=== PATIENT | male | born 1945 | race Caucasian/White ===

== ENCOUNTER 2017-10-22 07:43 | Day surgery (SDC) | payer MEDICARE, BC ==
[~2017-10-22 07:43] MED LIST: BUPIVACAINE HCL 0.75% INJ/PF (7.5 MG/1 ML) 10 ML SDV OD PRN; KETOROLAC TROMETHAMINE 0.45% 4 DROP/0.4 ML DROPERETTE OD PRN; LIDOCAINE 4% INJ/PF (40 MG/ML) 5 ML AMPUL OD PRN; MIDAZOLAM 2 MG/2 ML INJ ONE
[2017-10-22] MEDS: TETRACAINE HCL 0.5% OPH SOLN 0.6 ML DROPERETTE OD PRN ×2 (08:17→08:41)
[2017-10-22] MEDS: CYCLOPENTOLATE 0.2%/PHENYLEPHRINE 1% OPH SOLN 2 ML OD PRN ×3 (08:17→08:38)
[2017-10-22] MEDS: BESIFLOXACIN HCL 0.6% OPH SUSP 5 ML BOTTLE OD PRN ×3 (08:18→09:12)
[2017-10-22] MEDS: TROPICAMIDE 1% OPH SOLN 3 ML OD PRN ×3 (08:18→08:38)
[2017-10-22] MEDS ORDERED: CHONDR SU A NA/HYALUR INTRAOC KIT (SURGICARE) ONE (08:30)
[2017-10-22] MEDS ORDERED: EPINEPHRINE INJ/PF 1 MG/1 ML AMPULE ONE (08:30)
--- NOTE | 2017-10-22 09:47 | [facility] OPERATIVE REPORT E ---
[facility] Operative Report NAME: MEL ACUÑA AGE: 71Y DATE OF SURGERY: 10/22/2017 ROOM: [facility] Operative Report PREOPERATIVE DIAGNOSIS: CATARACT, RIGHT EYE. POSTOPERATIVE DIAGNOSIS: CATARACT, RIGHT EYE. PROCEDURE PERFORMED: PHACOEMULSIFICATION WITH POSTERIOR CHAMBER INTRAOCULAR LENS, RIGHT EYE. SURGEON: NEDRA ULLOA MD ANESTHESIA: TOPICAL WITH MAC. INDICATIONS FOR SURGERY: Difficulty reading computer and glare with driving. Best corrected visual acuity 20/50. PROCEDURE: The patient was brought to the Operating Room and placed on the operative table. Following tetracaine drops, topical anesthesia was administered. This consisted of instrument wipe pledgets soaked in a solution of 4% Xylocaine mixed with 0.75% Marcaine in a 1:2 ratio. A 2 x 1 cm pledget was placed in the superior fornix. A 1 x 1 cm pledget was placed in the inferior fornix. The eye was patched shut for 5 minutes. The patch was removed. The eye was sterilely prepped and draped in the usual manner. Lid speculum was placed in the eye. The pledgets were removed. 4-0 black silk sutures were placed around the superior and the inferior rectus muscles to be used as traction. A conjunctival peritomy was made at the 10 o'clock position. Hemostasis was obtained with bipolar cautery. A posterior limbal groove was created using a crescent knife and dissected anteriorly towards the cornea. A sharp point blade was used to create a paracentesis site at the 2 o'clock position. A 2.4 mm keratome was used to enter the anterior chamber through the groove. Viscoelastic was injected into the anterior chamber. An anterior capsulotomy was performed using Utrata forceps in a capsulorrhexis fashion. Hydrodissection and hydrodelineation were performed. Phacoemulsification was performed in [id number] technique. A total of 6.05 CDE seconds phaco time was used. Following this, the I/A unit was used to remove residual cortex. Viscoelastic was injected into the capsular bag. Intraocular lens model [id number], 17.5 diopters, serial number [id number] was placed in the capsular bag. The I/A unit was used to remove residual viscoelastic. The wound was seen to be watertight under high and low pressure, and no sutures were placed. The intraocular lens was well centered. The pressure was adjusted in the eye to normal pressure. The 4-0 black silk sutures and lid speculum were removed. The eye was shielded after Besivance drops were placed. The patient tolerated the procedure well and was sent to the Recovery Room in good condition. DICTATING PHYSICIAN: NEDRA ULLOA M.D. TISSUE REMOVED OR ALTERED: @ PROCEDURE: @ DICTATING PHYSICIAN: NEDRA ULLOA M.D. [id number] Y#: [id number] ID: [id number] JOB#: [id number] ACCT: [id number] cc:NEDRA ULLOA M.D. >
--- NOTE | 2017-10-22 09:53 | [facility] DISCHARGE SUMMARY E ---
[facility] Discharge Summary NAME: MEL ACUÑA AGE: 71Y ADMITTED: 10/22/2017 DISCHARGED: 10/22/2017 HOSPITAL COURSE: The patient is a 71-year-old gentleman who underwent uneventful cataract extraction with intraocular lens implant right eye on 10/22/2017. He will be discharged to home. He is instructed to resume preoperative medications and take Tylenol as needed for discomfort, to keep his eye shielded, to use Besivance, Durezol, Ilevro 3 p.m. and 8 p.m. Follow up in my office in one day. DICTATING PHYSICIAN: NEDRA ULLOA M.D. [id number] PHY#: [id number] ID: [id number] JOB#: [id number] ACCT: [id number] cc:NEDRA ULLOA M.D. >
== END 2017-10-22 09:50 | disposition home or self-care (01) ==
LOC: SC 07:43
PROVIDERS: ATTEND Ophthalmology
PROC: 08RJ3JZ Replacement of Right Lens with Synthetic Substitute, Percutaneous Approach (ICD-10-PCS; principal; 2017-10-22 09:00)
DX: H25.813 Combined forms of age-related cataract, bilateral (principal); E11.9 Type 2 diabetes mellitus without complications; H34.211 Partial retinal artery occlusion, right eye; H04.123 Dry eye syndrome of bilateral lacrimal glands; M06.9 Rheumatoid arthritis, unspecified; I10 Essential (primary) hypertension; E78.00 Pure hypercholesterolemia, unspecified; I51.9 Heart disease, unspecified; L40.50 Arthropathic psoriasis, unspecified; Z87.891 Personal history of nicotine dependence; Z88.8 Allergy status to other drugs, medicaments and biological substances; Z79.899 Other long term (current) drug therapy; Z79.82 Long term (current) use of aspirin; Z79.84 Long term (current) use of oral hypoglycemic drugs; M10.9 Gout, unspecified
CPT/HCPCS: 66984; 82962; V2632; J2250; J3490 ×3; A9270; J0171

== ENCOUNTER 2017-11-12 08:54 | Day surgery (SDC) | payer MEDICARE, BC ==
[~2017-11-12 08:54] MED LIST changes: -BUPIVACAINE HCL 0.75% INJ/PF (7.5 MG/1 ML) 10 ML SDV OD PRN; +BUPIVACAINE HCL 0.75% INJ/PF (7.5 MG/1 ML) 10 ML SDV OS PRN; -KETOROLAC TROMETHAMINE 0.45% 4 DROP/0.4 ML DROPERETTE OD PRN; +KETOROLAC TROMETHAMINE 0.45% 4 DROP/0.4 ML DROPERETTE OS PRN; -LIDOCAINE 4% INJ/PF (40 MG/ML) 5 ML AMPUL OD PRN; +LIDOCAINE 4% INJ/PF (40 MG/ML) 5 ML AMPUL OS PRN; -MIDAZOLAM 2 MG/2 ML INJ ONE
[2017-11-12] MEDS: TROPICAMIDE 1% OPH SOLN 3 ML OS PRN ×3 (09:35→09:55)
[2017-11-12] MEDS: CYCLOPENTOLATE 0.2%/PHENYLEPHRINE 1% OPH SOLN 2 ML OS PRN ×3 (09:35→09:55)
[2017-11-12] MEDS: BESIFLOXACIN HCL 0.6% OPH SUSP 5 ML BOTTLE OS PRN ×3 (09:35→10:47)
[2017-11-12] MEDS: TETRACAINE HCL 0.5% OPH SOLN 0.6 ML DROPERETTE OS PRN ×2 (09:36→09:55)
[2017-11-12] MEDS ORDERED: LIDOCAINE 1% INJ-PF (10 MG/ML) 30 ML SDV ONE (09:38)
[2017-11-12] MEDS ORDERED: EPINEPHRINE INJ/PF 1 MG/1 ML AMPULE ONE (09:38)
[2017-11-12] MEDS ORDERED: CHONDR SU A NA/HYALUR INTRAOC KIT (SURGICARE) ONE (09:38)
[2017-11-12] MEDS ORDERED: MIDAZOLAM 2 MG/2 ML INJ ONE (10:02)
[2017-11-12] MEDS ORDERED: FENTANYL CITRATE INJ/PF 100 MCG/2 ML AMPUL ONE (10:02)
--- NOTE | 2017-11-12 10:58 | [facility] OPERATIVE REPORT E ---
[facility] Operative Report NAME: MEL ACUÑA AGE: 71Y DATE OF SURGERY: 11/12/2017 ROOM: PREOPERATIVE DIAGNOSIS: Cataract, left eye. POSTOPERATIVE DIAGNOSIS: Cataract, left eye. PROCEDURE PERFORMED: Phacoemulsification with posterior chamber intraocular lens, left eye. SURGEON: NEDRA ULLOA M.D. ANESTHESIA: Topical with MAC. INDICATIONS FOR SURGERY: Difficulty with glare with night driving. Best corrected visual acuity 20/40. PROCEDURE: The patient was brought to the Operating Room and placed on the operative table. Following tetracaine drops, topical anesthesia was administered. This consisted of instrument wipe pledgets soaked in a solution of 4% Xylocaine mixed with 0.75% Marcaine in a 1:2 ratio. A 2 x 1 cm pledget was placed in the superior fornix. A 1 x 1 cm pledget was placed in the inferior fornix. The eye was patched shut for 5 minutes. The patch was removed. The eye was sterilely prepped and draped in the usual manner. Lid speculum was placed in the eye. The pledgets were removed. 4-0 black silk sutures were placed around the superior and the inferior rectus muscles to be used as traction. A conjunctival peritomy was made at the 10 o'clock position. Hemostasis was obtained with bipolar cautery. A posterior limbal groove was created using a crescent knife and dissected anteriorly towards the cornea. A sharp point blade was used to create a paracentesis site at the 2 o'clock position. A 2.4 mm keratome was used to enter the anterior chamber through the groove. Viscoelastic was injected into the anterior chamber. An anterior capsulotomy was performed using Utrata forceps in a capsulorrhexis fashion. Hydrodissection and hydrodelineation were performed. Phacoemulsification was performed in [id number]-ghayjfy technique. A total of 6.46 CDE phaco time was used. Following this, the I/A unit was used to remove residual cortex. Viscoelastic was injected into the capsular bag. Intraocular lens model SN60WF, 18.5 diopters, serial number [id number] was placed in the capsular bag. The I/A unit was used to remove residual viscoelastic. The wound was seen to be watertight under high and low pressure, and no sutures were placed. The intraocular lens was well centered. The pressure was adjusted in the eye to normal pressure. The 4-0 black silk sutures and lid speculum were removed. The eye was shielded after Besivance drops were placed. The patient tolerated the procedure well and was sent to the Recovery Room in good condition. DICTATING PHYSICIAN: NEDRA ULLOA M.D. [id number] PHY#: [id number] ID: [id number] JOB#: [id number] ACCT: [id number] cc:NEDRA ULLOA M.D. >
--- NOTE | 2017-11-12 10:59 | [facility] DISCHARGE SUMMARY E ---
[facility] Discharge Summary NAME: MEL ACUÑA AGE: 71Y ADMITTED: 11/12/2017 DISCHARGED: 11/12/2017 HOSPITAL COURSE: The patient is a 71-year-old gentleman who underwent uneventful cataract extraction with intraocular lens implant left eye on 11/12/2017. He will be discharged to home. He is instructed to resume preoperative medications, take Tylenol as needed for discomfort, to keep his eye shielded, to use Besivance, Durezol, and Ilevro at 3 p.m. and to 8 p.m., and to follow up in my office in 1 day. DICTATING PHYSICIAN: NEDRA ULLOA M.D. [id number] PHY#: [id number] ID: [id number] JOB#: [id number] ACCT: [id number] cc:NEDRA ULLOA M.D. >
== END 2017-11-12 11:40 | disposition home or self-care (01) ==
LOC: SC 08:54
PROVIDERS: ATTEND Ophthalmology
PROC: 08RK3JZ Replacement of Left Lens with Synthetic Substitute, Percutaneous Approach (ICD-10-PCS; principal; 2017-11-12 10:30)
DX: H25.812 Combined forms of age-related cataract, left eye (principal); H57.03 Miosis; Z96.1 Presence of intraocular lens; M19.90 Unspecified osteoarthritis, unspecified site; E11.9 Type 2 diabetes mellitus without complications; I10 Essential (primary) hypertension; Z79.899 Other long term (current) drug therapy; Z79.84 Long term (current) use of oral hypoglycemic drugs; Z87.891 Personal history of nicotine dependence
CPT/HCPCS: 82962; 66984; V2632; J2250; J3490 ×4; A9270; J0171; 142; J3010

== ENCOUNTER 2018-07-16 13:01 | Emergency (ER) | payer MEDICARE, BC ==
--- NOTE | 2018-07-16 13:40 | ER Document Report ---
ED Medical Screen (RME) - General Chief Complaint: Urinary Retention Stated Complaint: CATH ISSUE Time Seen by Provider: 07/16/18 13:26 TRAVEL OUTSIDE OF THE [place] IN LAST 30 DAYS: No - HPI Patient complains to provider of: urinary retention Onset: Other - 72-year-old man that presents for the acute onset of urinary retention. He had a Brush catheter placed in the loop of a GI procedure next week on Saturday in which she will have a total colectomy and ostomy creation. He has a known stent placement in his ureter and after the placement of his stent he had his Brush catheter left in place. Today when they changed his leg bag is urine stopped draining. He notes that since approximately 7 hours prior to arrival he has not had any urine output, denies any fevers or chills or systemic signs of infection is having very bad abdominal pain. - Related Data Allergies/Adverse Reactions: niacin Allergy (Intermediate, Verified 07/16/18 13:32) Hives Past Medical History - Social History Chew tobacco use (# tins/day): No Frequency of alcohol use: None Drug Abuse: None - Past Medical History Cardiac Medical History: Reports: Hx Coronary Artery Disease, Hx Hypercholesterolemia, Hx Hypertension Denies: Hx Heart Attack - ANGINA 2004 Pulmonary Medical History: Denies: Hx Asthma Neurological Medical History: Denies: Hx Cerebrovascular Accident, Hx Seizures Endocrine Medical History: Reports: Hx Diabetes Mellitus Type 2 Renal/ Medical History: Reports: Hx Kidney Stones. Denies: Hx Peritoneal Dialysis GI Medical History: Denies: Hx Hepatitis, Hx Hiatal Hernia, Hx Ulcer Musculoskeltal Medical History: Reports Hx Arthritis Infectious Medical History: Denies: Hx Hepatitis Past Surgical History: Reports: Hx Abdominal Surgery - part of colon removed, Hx Kidney (Renal Surgery). Denies: Hx Open Heart Surgery, Hx Pacemaker Physical Exam - Vital signs Vitals: Temp Pulse Resp BP Pulse Ox 98.4 F 88 14 146/75 H 98 07/16/18 13:10 07/16/18 13:10 07/16/18 13:10 07/16/18 13:10 07/16/18 13:10 Course - Re-evaluation Re-evalutation: This is a gentleman with acute onset urinary retention in the setting of likely an obstructed Brush catheter. Patient will need replacement of his Brush catheter or irrigation. 07/16/18 13:40 I performed a rapid medical screening examination on this patient will defer further disposition determination workup and labs to next provider. - Vital Signs Vital signs: Temp Pulse Resp BP Pulse Ox 98.4 F 88 14 146/75 H 98 07/16/18 13:10 07/16/18 13:10 07/16/18 13:10 07/16/18 13:10 07/16/18 13:10 Doctor's Discharge - Discharge Referrals: RICHI HUANG MD [Primary Care Provider] - Follow up as needed
--- NOTE | 2018-07-16 14:28 | ER Document Report ---
ED General - General Chief Complaint: Urinary Retention Stated Complaint: CATH ISSUE Time Seen by Provider: 07/16/18 13:26 Notes: 72-year-old male to the emergency department chief complaint of urinary retention. Patient has an indwelling Brush catheter. Had a catheter placed in anticipation of a surgery coming up after he found out he had a kidney stone and a stent was placed. Catheter was placed and was told to keep the catheter in as having colon resection on Saturday. Today was having difficulty urinating through the catheter. Has not made any urine since 6 this morning. Feels distended in the lower abdominal/bladder area. Very uncomfortable. Rates discomfort as 10/10 on a numeric pain scale. Denies any other major symptoms at this time. TRAVEL OUTSIDE OF THE [place] IN LAST 30 DAYS: No - HPI Onset: This morning - Related Data Allergies/Adverse Reactions: niacin Allergy (Intermediate, Verified 07/16/18 13:32) Hives Past Medical History - Social History Smoking Status: Never Smoker Chew tobacco use (# tins/day): No Frequency of alcohol use: None Drug Abuse: None Lives with: Family Family History: CAD, Malignancy Patient has suicidal ideation: No Patient has homicidal ideation: No - Past Medical History Cardiac Medical History: Reports: Hx Coronary Artery Disease, Hx Hypercholesterolemia, Hx Hypertension Denies: Hx Heart Attack - ANGINA 2004 Pulmonary Medical History: Denies: Hx Asthma Neurological Medical History: Denies: Hx Cerebrovascular Accident, Hx Seizures Endocrine Medical History: Reports: Hx Diabetes Mellitus Type 2 Renal/ Medical History: Reports: Hx Kidney Stones. Denies: Hx Peritoneal Dialysis GI Medical History: Denies: Hx Hepatitis, Hx Hiatal Hernia, Hx Ulcer Musculoskeletal Medical History: Reports Hx Arthritis Infectious Medical History: Denies: Hx Hepatitis Past Surgical History: Reports: Hx Abdominal Surgery - part of colon removed, Hx Kidney (Renal Surgery). Denies: Hx Open Heart Surgery, Hx Pacemaker Review of Systems - Review of Systems Notes: Constitutional: denies: Chills, Diaphoresis, Fever, Malaise, Weakness EENT: denies: Eye discharge, Blurred vision, Tearing, Double vision, Nose congestion, Nose discharge, Throat swelling, Mouth pain Cardiovascular: denies: Palpitations, Heart racing, Orthopnea, Dyspnea, Chest pain Respiratory: denies: Cough, Hurts to breathe, Wheezing, Shortness of breath Gastrointestinal: denies: Abdominal pain, Diarrhea, Nausea, Vomiting, Black stools, bright red blood in stool Genitourinary: denies: Burning, Dysuria, Discharge, Frequency, Flank pain, Hematuria. Patient does complain of decreased urinary output and urinary retention since 6 AM this morning Musculoskeletal: denies: Joint pain, Joint swelling, Muscle pain, Muscle stiffness, back pain Hematologic/Lymphatic: denies: Anemia, Easy bleeding, Easy bruising, Blood clots Neurological/Psychological: denies: Confusion, Dementia, Depression, Loss of consciousness Skin: No lesions, no masses, no skin breakdown, no abscesses Physical Exam - Vital signs Vitals: Temp Pulse Resp BP Pulse Ox 98.4 F 88 14 146/75 H 98 07/16/18 13:10 07/16/18 13:10 07/16/18 13:10 07/16/18 13:10 07/16/18 13:10 Interpretation: Normal - General General appearance: Appears well, Alert - HEENT Head: Normocephalic, Atraumatic Eyes: Normal Pupils: PERRL - Respiratory Respiratory status: No respiratory distress Chest status: Nontender Breath sounds: Normal Chest palpation: Normal - Cardiovascular Rhythm: Regular Heart sounds: Normal auscultation Murmur: No - Abdominal Inspection: Normal Distension: No distension Bowel sounds: Normal Tenderness: Nontender Organomegaly: No organomegaly - Genitourinary Notes: he has an indwelling [address] [place] [address] catheter in place with palpable and mildly distended lower abdomen/suprapubic area. The bedside bladder scan shows approximately 600 mL of urine in the bladder. - Back Back: Normal, Nontender - Extremities General upper extremity: Normal inspection, Nontender, Normal color, Normal ROM , Normal temperature General lower extremity: Normal inspection, Nontender, Normal color, Normal ROM , Normal temperature, Normal weight bearing. No: Candida's sign - Neurological Neuro grossly intact: Yes Cognition: Normal Orientation: AAOx4 Slaughters Coma Scale Eye Opening: Spontaneous Sandeep Coma Scale Verbal: Oriented Slaughters Coma Scale Motor: Obeys Commands Sandeep Coma Scale Total: 15 Speech: Normal Motor strength normal: LUE, RUE, LLE, RLE Sensory: Normal - Psychological Associated symptoms: Normal affect, Normal mood - Skin Skin Temperature: Warm Skin Moisture: Dry Skin Color: Normal Course - Re-evaluation Re-evalutation: 07/16/18 15:00 Bedside bladder scan performed prior to removal of catheter. Approximately 600 cc of urine in the bladder. Replaced the 16 [place] Brush and approximately 700 cc of yellow urine returned. We will send that off for analysis. At this time patient is 100% symptom resolved. Will DC at this time. - Vital Signs Vital signs: Temp Pulse Resp BP Pulse Ox 98.4 F 88 14 146/75 H 98 07/16/18 13:10 07/16/18 13:10 07/16/18 13:10 07/16/18 13:10 07/16/18 13:10 Discharge - Discharge Clinical Impression: Acute urinary retention Condition: Good Disposition: HOME, SELF-CARE Instructions: Brush Catheter Care ([facility]) Additional Instructions: Please follow-up with your regular doctor for instructions on when catheter should be removed. In the event that you have decreased urinary output again please return or contact her home health nurse Referrals: RICHI HUANG MD [Primary Care Provider] - Follow up as needed
[2018-07-16 15:11] LABS: APPEARANCE,URINE HAZY
[2018-07-16 15:12] VITALS: BP 125/66
[2018-07-16 15:12] LABS: BILIRUBIN,URINE NEGATIVE (NEGATIVE); GLUCOSE, URINE 500 mg/dL (NEGATIVE); KETONES,URINE NEGATIVE (NEGATIVE); LEUKOCYTE ESTERASE,URINE LARGE (NEGATIVE); NITRITE,URINE NEGATIVE (NEGATIVE); PROTEIN,URINE 30 mg/dL (NEGATIVE); URINE SPECIFIC GRAVITY 1.013; UROBILINOGEN,URINE NEGATIVE mg/dL (<2.0)
[2018-07-16 15:13] LABS: ADD MANUAL MICROSCOPIC YES; BACTERIA,URINE 1+ /HPF; COLOR,URINE LIGHT YELLOW; WBC,URINE TOO NUMEROUS TO CNT /HPF
== END 2018-07-16 15:15 | disposition home or self-care (01) ==
LOC: ER 13:01
DX: R33.9 Retention of urine, unspecified (principal); I25.10 Atherosclerotic heart disease of native coronary artery without angina pectoris; E78.00 Pure hypercholesterolemia, unspecified; I10 Essential (primary) hypertension; E11.9 Type 2 diabetes mellitus without complications; Z87.442 Personal history of urinary calculi
CPT/HCPCS: 51702; 81001; 87086; 99283

== ENCOUNTER 2018-08-30 11:32 | Emergency (ER) | payer MEDICARE, BC ==
[2018-08-30 12:42] LABS: ALANINE AMINOTRANSFERASE 35 U/L (21-72); ALBUMIN 4.5 g/dL (3.5-5.0); ALKALINE PHOSPHATASE 119 U/L (38-126); ANION GAP 17 (5-19); ASPARTATE AMINO TRANSFERASE 25 U/L (17-59); BILIRUBIN,DIRECT 0.2 mg/dL (0.0-0.4); BILIRUBIN,TOTAL 0.5 mg/dL (0.2-1.3); BLOOD UREA NITROGEN 54 mg/dL (7-20); CALCIUM 11.5 mg/dL (8.4-10.2); CARBON DIOXIDE 14 mmol/L (22-30); CHLORIDE 105 mmol/L (98-107); GLUCOSE 97 mg/dL (75-110); LIPASE 34.1 U/L (23-300); SODIUM 136.1 mmol/L (137-145); TOTAL PROTEIN 8.7 g/dL (6.3-8.2)
[2018-08-30 12:47] LABS: POTASSIUM 6.7 mmol/L (3.6-5.0)
[2018-08-30] MEDS ORDERED: NORMAL SALINE 1000 ML 1,000 ML IV ONE ×2 (12:50→14:46)
[2018-08-30 12:51] LABS: ABSOLUTE BASOPHILS # (AUTO) 0.1 10^3/uL (0.0-0.2); ABSOLUTE LYMPHOCYTES (AUTO) 1.3 10^3/uL (0.5-4.7); ABSOLUTE MONOCYTES (AUTO) 0.6 10^3/uL (0.1-1.4); ABSOLUTE NEUT (AUTO) 7.7 10^3/uL (1.7-8.2); BASOPHILS % (AUTO) 0.6 % (0-2); EOSINOPHILS % (AUTO) 0.2 % (0-6); HEMATOCRIT 45.3 % (37.9-51.0); HEMOGLOBIN 15.5 g/dL (13.5-17.0); LYMPHOCYTES % (AUTO) 13.9 % (13-45); MEAN CORPUSCULAR HEMOGLOBIN 33.6 pg (27.0-33.4); MEAN CORPUSCULAR HGB CONC 34.2 g/dL (32.0-36.0); MEAN CORPUSCULAR VOLUME 98 fl (80-97); MONOCYTES % (AUTO) 5.9 % (3-13); PLATELET COUNT 215 10^3/uL (150-450); RED BLOOD COUNT 4.62 10^6/uL (4.35-5.55); RED CELL DISTRIBUTION WIDTH 15.1 % (11.5-14.0); SEGMENTED NEUTROPHILS % (AUTO) 79.4 % (42-78); TOTAL CELLS COUNTED % (AUTO) 100 %; WHITE BLOOD COUNT 9.7 10^3/uL (4.0-10.5)
[2018-08-30] MEDS ORDERED: SODIUM BICARBONATE 8.4% INJ 50 MEQ/50 ML DISP.SYRIN IV ONE (12:51)
[2018-08-30] MEDS ORDERED: CALCIUM GLUCONATE 1000 MG/10 ML INJ IV ONE (12:51)
[2018-08-30] MEDS ORDERED: INSULIN REG, HUMAN 100 UNIT/ML 3 ML VIAL (PYX) IV ONE (12:51)
[2018-08-30] MEDS ORDERED: DEXTROSE 50%-WATER 25 GM/50 ML DISP.SYRIN IV ONE (12:52)
[2018-08-30] MEDS ORDERED: ONDANSETRON HCL INJ/PF 4 MG/2 ML SDV ONE ×2 (12:54→14:46)
--- NOTE | 2018-08-30 13:26 | ER Document Report ---
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 Patient supposedly has been in and out of the hospital [facility] since July 08 for dehydration. He was last discharged this past Saturday with a diagnosis of stage III kidney disease, dehydration, high potassium, and high calcium. 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 Patient was supposedly doing well upon discharge with some eating and drinking. He has then progressed again to decreased p.o. intake. Patient did vomit once last night and one today. No fevers or diarrhea. Normal ostomy output. Patient does have some diffuse discomfort to his abdomen. Family and patient deny any sore throat, headache, neck pain, chest pain, shortness of breath. Patient is also complained of some left leg pain for the last week. No noted trauma according to the patient and family. TRAVEL OUTSIDE OF THE [place] IN LAST 30 DAYS: No - HPI Onset: Other - See above Onset/Duration: Gradual Quality of pain: Achy Associated symptoms: Other - See above Exacerbated by: Denies Relieved by: Denies Similar symptoms previously: Yes Recently seen / treated by doctor: Yes - Related Data Allergies/Adverse Reactions: niacin Allergy (Intermediate, Verified 07/16/18 13:32) Hives Past Medical History - Social History Smoking Status: Former Smoker Family History: CAD, Malignancy Patient has suicidal ideation: No Patient has homicidal ideation: No - Past Medical History Cardiac Medical History: Reports: Hx Coronary Artery Disease, Hx Hypercholesterolemia, Hx Hypertension Comment Only: Hx Heart Attack - ANGINA 2005 Pulmonary Medical History: Denies: Hx Asthma Neurological Medical History: Denies: Hx Cerebrovascular Accident, Hx Seizures Endocrine Medical History: Reports: Hx Diabetes Mellitus Type 2 Renal/ Medical History: Reports: Hx Kidney Stones. Denies: Hx Peritoneal Dialysis GI Medical History: Denies: Hx Hepatitis, Hx Hiatal Hernia, Hx Ulcer Musculoskeletal Medical History: Reports Hx Arthritis Infectious Medical History: Denies: Hx Hepatitis Past Surgical History: Reports: Hx Abdominal Surgery - part of colon removed, Hx Kidney (Renal Surgery). Denies: Hx Open Heart Surgery, Hx Pacemaker Review of Systems - Review of Systems Constitutional: denies: Fever EENT: denies: Eye discharge, Nose discharge Cardiovascular: denies: Chest pain, Palpitations Respiratory: denies: Short of breath Gastrointestinal: Vomiting. denies: Diarrhea Genitourinary: denies: Dysuria Musculoskeletal: denies: Leg swelling Skin: denies: Rash Neurological/Psychological: Other - no slurred speech -: Yes All other systems reviewed and negative Physical Exam - Vital signs Vitals: Resp BP 16 96/69 L 08/30/18 12:03 08/30/18 12:03 Interpretation: Normal Notes: Reviewed vital signs and nursing note as charted by RN. CONSTITUTIONAL: Patient is lying on his side with a vomitus bag in his hand appearing ill HEAD: Normocephalic; atraumatic EYES: PERRL; Conjunctivae clear, sclerae non-icteric ENT: Normal nose; no rhinorrhea; moist mucous membranes; pharynx without lesions noted NECK: Supple without meningismus; non-tender; no cervical lymphadenopathy, no masses CARD: Regular rate and rhythm; no murmurs; symmetric distal pulses RESP: Normal chest excursion without splinting or tachypnea; breath sounds clear and equal bilaterally ABD/GI: Normal bowel sounds; non-distended; soft, good ostomy output with no apparent blood from the ostomy site. No surrounding erythema from the ostomy site. Mild tenderness without rebound or guarding to the abdomen. No palpable masses or abdominal bruits BACK: The back appears normal and is non-tender to palpation EXT: Normal ROM in all joints; non-tender to palpation; no obvious leg swelling and no edema SKIN: No acute lesions noted NEURO: CN 2-12 intact; 5/5 bilateral upper and lower extremity strength with sensation intact to light touch PSYCH: The patient's mood and manner are appropriate. Grooming and personal hygiene are appropriate. Course - Re-evaluation Re-evalutation: Given the above history and physical examination I will obtain labs, CT scan of the abdomen and pelvis, EKG, and a lactic acid level. I am concerned about the patient's kidney function given his previous discharge diagnosis according to the family. 08/30/18 13:24 Labs as recorded. Vital signs are stable. I have provided potassium lowering medications and we will proceed with a CT scan without contrast. I anticipate transfer back to [facility]. We do not have nephrology supervisor smoke control at this facility. Liter of fluid has been bolused. EKG shows a heart rate 97, normal sinus rhythm, normal axis, left anterior fascicular block. No ST elevation or depression. No old EKG to compare. 08/30/18 14:54 Potassium lowering medications have been provided. Another 500 bolus of normal saline has been provided. CT scan is currently being performed. No change in exam. 08/30/18 15:55 CT scan as recorded. I have called and spoken to the transfer service at [facility] and Dr. Janeen Stafford has accepted the patient. I have ordered a repeat chemistry. - Vital Signs Vital signs: Temp Pulse Resp BP Pulse Ox 16 96/69 L 08/30/18 12:03 08/30/18 12:03 - Laboratory Result Diagrams: 08/30/18 12:30 08/30/18 12:00 Laboratory results interpreted by me: 08/30/18 08/30/18 12:00 12:30 MCV 98 H MCH 33.6 H RDW 15.1 H Seg Neutrophils % 79.4 H Sodium 136.1 L Potassium 6.7 H* Carbon Dioxide 14 L BUN 54 H Creatinine 2.31 H Est GFR ( Amer) 34 L Est GFR (Non-Af Amer) 28 L Calcium 11.5 H Total Protein 8.7 H Critical Care Note - Critical Care Note Total time excluding time spent on procedures (mins): 45 Discharge - Discharge Clinical Impression: Hyperkalemia, Hypercalcemia Acute renal failure (ARF) Qualifiers: Acute renal failure type: unspecified Qualified Code(s): N17.9 - Acute kidney failure, unspecified Abdominal pain Qualifiers: Abdominal location: unspecified location Qualified Code(s): R10.9 - Unspecified abdominal pain Vomiting Qualifiers: Vomiting type: unspecified Vomiting Intractability: non-intractable Nausea presence: with nausea Qualified Code(s): R11.2 - Nausea with vomiting, unspecified Condition: Fair Disposition: Critical access hospital Referrals: RICHI HUANG MD [Primary Care Provider] - Follow up as needed
[2018-08-30] MEDS ORDERED: ONDANSETRON HCL INJ/PF 4 MG/2 ML SDV IV ONE (14:46)
--- NOTE | 2018-08-30 15:13 | RADIOLOGY REPORT (SQ) ---
EXAM DESCRIPTION: VENOUS UNILATERAL LOWER COMPLETED DATE/TIME: 08/30/2018 2:49 pm REASON FOR STUDY: 10, left leg pain COMPARISON: None. TECHNIQUE: Dynamic and static morillo scale and color images acquired of the left leg venous system. Se lected spectral images acquired with additional compression and augmentation maneuvers. The contralat eral common femoral vein and saphenofemoral junction were also imaged. Images stored on PACS. LIMITATIONS: None. FINDINGS: COMMON FEMORAL: Normal phasicity, compression and augmentation. No visualized echogenic ma terial on morillo scale. No defects on color images. FEMORAL: Normal compression and augmentation. No visualized echogenic material on morillo scale. No defe cts on color images. POPLITEAL: Normal compression, augmentation. No visualized echogenic material on morillo scale. No defec ts on color images. CALF VESSELS: Normal compression, augmentation. No visualized echogenic material on morillo scale. No de fects on color images. GSV and SSV: Normal compression, augmentation. No visualized echogenic material on morillo scale. No def ects on color images. ANY DEEP VENOUS INSUFFICIENCY: Not evaluated. ANY EVIDENCE OF POPLITEAL CYST: No. OTHER: No other significant finding. CONTRALATERAL COMMON FEMORAL VEIN AND SAPHENOFEMORAL JUNCTION: Normal phasicity, compression and augmentation. No visualized echogenic material on morillo scale. No de fects on color images. IMPRESSION: NO EVIDENCE OF DVT OR SVT IN THE LEFT LEG. TECHNICAL DOCUMENTATION: JOB ID: [id number] [employer]- All Rights Reserved Reading location - IP/workstation name: [email or web address]
--- NOTE | 2018-08-30 15:34 | RADIOLOGY REPORT (SQ) ---
EXAM DESCRIPTION: CT ABD/PELVIS NO ORAL OR IV COMPLETED DATE/TIME: 08/30/2018 3:05 pm REASON FOR STUDY: 10, abdominal pain COMPARISON: None. TECHNIQUE: CT scan of the abdomen and pelvis performed without intravenous or oral contrast. Images reviewed with lung, soft tissue, and bone windows. Reconstructed coronal and sagittal MPR images revi ewed. All images stored on PACS. All CT scanners at this facility use dose modulation, iterative reconstruction, and/or weight based d osing when appropriate to reduce radiation dose to as low as reasonably achievable (ALARA). [facility]: Dose Right [facility]: CareDose [facility]: Dose Right [facility]: Teradose 4D [facility]: Smart Viddyad RADIATION DOSE: CT Rad equipment meets quality standard of care and radiation dose reduction techniq ues were employed. CTDIvol: 2.6 mGy. DLP: 138 mGy-cm.mGy. LIMITATIONS: Slender patient, no IV or oral contrast FINDINGS: LOWER CHEST: No significant findings. No nodules or infiltrates. NON-CONTRASTED LIVER, SPLEEN, ADRENALS: Evaluation limited by lack of IV contrast. No identified sign ificant masses. 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 Currently, no inflammatory change in the retroperitoneum around the pancreas is seen. GALLBLADDER: No identified stones by CT criteria. No inflammatory changes to suggest cholecystitis. RIGHT KIDNEY AND URETER: Multiple right renal cortical cysts, the largest is 9 cm along the right low er pole kidney. No significant calcifications. No hydronephrosis or hydroureter. There is a righ t double-J ureteral stent, with the proximal loop in the right renal pelvis, and distal loop in the b ladder. LEFT KIDNEY AND URETER: Multiple left renal cortical cysts are present, the largest is 4 cm in the mi d pole left kidney. Small intrarenal nonobstructive calcifications are present likely 4 mm stones i n the mid and lower pole kidney. No hydronephrosis or hydroureter. AORTA AND RETROPERITONEUM: Aortic stent graft extending into the bilateral proximal common iliac korin deshaun. Arterial stent left external and internal iliac artery. No retroperitoneal hemorrhage. BOWEL AND PERITONEAL CAVITY: No oral contrast. No dilated loops worrisome for bowel obstruction. Darrell oliva has a right-sided colostomy. APPENDIX: Not identified PELVIS, BLADDER, AND ABDOMINAL WALL:Air bubbles in the bladder, question recent urinary catheterizati on. No free pelvic fluid. No pelvic adenopathy. BONES: No significant findings. OTHER: No other significant finding. IMPRESSION: No acute findings COMMENT: Quality ID # [id number]: Final reports with documentation of one or more dose reduction techniques (e.g., Automated exposure control, adjustment of the mA and/or kV according to patient size, use of iterative reconstruction technique) TECHNICAL DOCUMENTATION: JOB ID: [id number]- All Rights Reserved Reading location - IP/workstation name: [email or web address]
[2018-08-30 16:05] LABS: ANION GAP 13 (5-19); BLOOD UREA NITROGEN 56 mg/dL (7-20); CALCIUM 11.2 mg/dL (8.4-10.2); CARBON DIOXIDE 16 mmol/L (22-30); CHLORIDE 107 mmol/L (98-107); GLUCOSE 194 mg/dL (75-110); POTASSIUM 5.8 mmol/L (3.6-5.0); SODIUM 136.4 mmol/L (137-145)
[2018-08-30 17:14] VITALS: BP 128/76
--- NOTE | 2018-08-30 21:44 | EKG REPORT ---
SEVERITY:- ABNORMAL ECG - SINUS RHYTHM RIGHT ATRIAL ABNORMALITY LEFT ANTERIOR FASCICULAR BLOCK : Confirmed by: Alem Quintana MD 30-Aug-2018 21:43:01
== END 2018-08-30 16:45 | disposition short-term general hospital (02) ==
LOC: ER 11:32
DX: N17.9 Acute kidney failure, unspecified (principal); E87.5 Hyperkalemia; E83.52 Hypercalcemia; R11.2 Nausea with vomiting, unspecified; R10.9 Unspecified abdominal pain; M79.605 Pain in left leg; I44.4 Left anterior fascicular block; I25.10 Atherosclerotic heart disease of native coronary artery without angina pectoris; I10 Essential (primary) hypertension; E11.9 Type 2 diabetes mellitus without complications; Z88.8 Allergy status to other drugs, medicaments and biological substances; Z93.2 Ileostomy status; Z87.442 Personal history of urinary calculi; Z87.891 Personal history of nicotine dependence
CPT/HCPCS: 93005; 99291; 96361; 96375; 96365; 36415; 82962; 83605; 83690; 85025; 80048; 80053; 84484; 93971; 74176; 93010; J0610; J3490 ×2; A9270; J2405; J7030; J1815

== ENCOUNTER → 2019-01-06 | Outpatient (CLI) | payer MEDICARE, BC ==
[2019-01-06 12:22] LABS: ABSOLUTE BASOPHILS # (AUTO) 0.1 10^3/uL (0.0-0.2); ABSOLUTE EOSINOPHILS # (AUTO) 0.1 10^3/uL (0.0-0.6); ABSOLUTE LYMPHOCYTES (AUTO) 1.9 10^3/uL (0.5-4.7); ABSOLUTE MONOCYTES (AUTO) 0.6 10^3/uL (0.1-1.4); ABSOLUTE NEUT (AUTO) 4.2 10^3/uL (1.7-8.2); BASOPHILS % (AUTO) 0.8 % (0-2); EOSINOPHILS % (AUTO) 1.9 % (0-6); HEMATOCRIT 38.8 % (37.9-51.0); HEMOGLOBIN 13.2 g/dL (13.5-17.0); LYMPHOCYTES % (AUTO) 27.1 % (13-45); MEAN CORPUSCULAR HEMOGLOBIN 35.2 pg (27.0-33.4); MEAN CORPUSCULAR HGB CONC 33.9 g/dL (32.0-36.0); MEAN CORPUSCULAR VOLUME 104 fl (80-97); MONOCYTES % (AUTO) 8.3 % (3-13); PLATELET COUNT 184 10^3/uL (150-450); RED BLOOD COUNT 3.74 10^6/uL (4.35-5.55); RED CELL DISTRIBUTION WIDTH 15.7 % (11.5-14.0); SEGMENTED NEUTROPHILS % (AUTO) 61.9 % (42-78); TOTAL CELLS COUNTED % (AUTO) 100 %; WHITE BLOOD COUNT 6.9 10^3/uL (4.0-10.5)
[2019-01-06 12:43] LABS: ANION GAP 8 (5-19); BLOOD UREA NITROGEN 40 mg/dL (7-20); CALCIUM 10.5 mg/dL (8.4-10.2); CARBON DIOXIDE 20 mmol/L (22-30); CHLORIDE 111 mmol/L (98-107); GLUCOSE 158 mg/dL (75-110); PHOSPHORUS 4.5 mg/dL (2.5-4.5); POTASSIUM 4.7 mmol/L (3.6-5.0); SODIUM 139.3 mmol/L (137-145)
[2019-01-06 13:04] LABS: APPEARANCE,URINE SLIGHTLY-CLOUDY; BILIRUBIN,URINE NEGATIVE (NEGATIVE); COLOR,URINE YELLOW; GLUCOSE, URINE NEGATIVE (NEGATIVE); KETONES,URINE NEGATIVE (NEGATIVE); LEUKOCYTE ESTERASE,URINE MODERATE (NEGATIVE); NITRITE,URINE NEGATIVE (NEGATIVE); PROTEIN,URINE NEGATIVE (NEGATIVE); URINE SPECIFIC GRAVITY 1.013; UROBILINOGEN,URINE NEGATIVE mg/dL (<2.0)
[2019-01-07 10:38] LABS: CREATININE URINE 109.4 mg/dL (Not Estab.); MICROALBUMIN URINE 32.5 ug/mL (Not Estab.)
== END ==
LOC: OD 11:49
PROVIDERS: ATTEND Internal Medicine Nephrology
DX: I12.9 Hypertensive chronic kidney disease with stage 1 through stage 4 chronic kidney disease, or unspecified chronic kidney disease (principal); N18.3 Chronic kidney disease, stage 3 (moderate); E11.22 Type 2 diabetes mellitus with diabetic chronic kidney disease; D64.9 Anemia, unspecified; E55.9 Vitamin D deficiency, unspecified; R80.9 Proteinuria, unspecified
CPT/HCPCS: 36415; 80069; 81001; 82043; 82306; 82570; 83970; 85025

== ENCOUNTER 2019-02-10 14:27 | Inpatient (IN) | payer MEDICARE, BC ==
--- NOTE | 2019-02-10 15:00 | ER Document Report ---
ED Medical Screen (RME) - General Chief Complaint: Abnormal Lab Results Stated Complaint: ABNORMAL LABS Time Seen by Provider: 02/10/19 14:57 Primary Care Provider: DALE GILLIS MD [Primary Care Provider] - Follow up as needed Mode of Arrival: Ambulatory Information source: Patient Notes: 73-year-old male presented to ED for complaint of abnormal blood results when he went to the doctor today. He states he has an appointment with Dr. Aguilar on and he had to go in today and get blood work and Dr. Aguilar called and told he had to come to the emergency room for potassium is 6.1. Patient is alert oriented respirations regular and unlabored speaking in full sentences. Patient has a history of stage III renal disease. He also has a history of kamar betes diverticulitis dehydration and sepsis. 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 I have ordered blood work and urine saline lock EKG and cardiac monitoring. He will be seen by a provider in the main ED. I have greeted and performed a rapid initial assessment of this patient. A comprehensive ED assessment and evaluation of the patient, analysis of test results and completion of medical decision making process will be conducted by an additional ED providers. TRAVEL OUTSIDE OF THE [place] IN LAST 30 DAYS: No - Related Data Allergies/Adverse Reactions: niacin [From Niaspan Extended-Release] Allergy (Mild, Verified 02/10/19 14:42) Past Medical History - Past Medical History Cardiac Medical History: Reports: Hx Coronary Artery Disease, Hx Hypercholesterolemia, Hx Hypertension Comment Only: Hx Heart Attack - ANGINA 2005 Pulmonary Medical History: Denies: Hx Asthma Neurological Medical History: Denies: Hx Cerebrovascular Accident, Hx Seizures Endocrine Medical History: Reports: Hx Diabetes Mellitus Type 2 Renal/ Medical History: Reports: Hx Kidney Stones. Denies: Hx Peritoneal Dialysis GI Medical History: Denies: Hx Hepatitis, Hx Hiatal Hernia, Hx Ulcer Musculoskeltal Medical History: Reports Hx Arthritis Infectious Medical History: Denies: Hx Hepatitis Past Surgical History: Reports: Hx Abdominal Surgery - part of colon removed, Hx Kidney (Renal Surgery). Denies: Hx Open Heart Surgery, Hx Pacemaker Physical Exam - Vital signs Vitals: Temp Pulse Resp BP Pulse Ox 97.5 F 50 L 16 95/53 L 99 02/10/19 14:51 02/10/19 14:51 02/10/19 14:51 02/10/19 14:51 02/10/19 14:51 Course - Vital Signs Vital signs: Temp Pulse Resp BP Pulse Ox 97.5 F 50 L 16 95/53 L 99 02/10/19 14:51 02/10/19 14:51 02/10/19 14:51 02/10/19 14:51 02/10/19 14:51 Doctor's Discharge - Discharge Referrals: DALE GILLIS MD [Primary Care Provider] - Follow up as needed
[2019-02-10 16:14] LABS: ABSOLUTE EOSINOPHILS # (AUTO) 0.1 10^3/uL (0.0-0.6); ABSOLUTE LYMPHOCYTES (AUTO) 1.7 10^3/uL (0.5-4.7); ABSOLUTE MONOCYTES (AUTO) 0.6 10^3/uL (0.1-1.4); ABSOLUTE NEUT (AUTO) 3.3 10^3/uL (1.7-8.2); BASOPHILS % (AUTO) 0.6 % (0-2); HEMATOCRIT 38.1 % (37.9-51.0); HEMOGLOBIN 12.6 g/dL (13.5-17.0); LYMPHOCYTES % (AUTO) 29.1 % (13-45); MEAN CORPUSCULAR HEMOGLOBIN 34.5 pg (27.0-33.4); MEAN CORPUSCULAR HGB CONC 33.1 g/dL (32.0-36.0); MEAN CORPUSCULAR VOLUME 104 fl (80-97); MONOCYTES % (AUTO) 9.9 % (3-13); PLATELET COUNT 161 10^3/uL (150-450); RED BLOOD COUNT 3.66 10^6/uL (4.35-5.55); SEGMENTED NEUTROPHILS % (AUTO) 58.4 % (42-78); TOTAL CELLS COUNTED % (AUTO) 100 %; WHITE BLOOD COUNT 5.7 10^3/uL (4.0-10.5)
[2019-02-10 16:32] LABS: ALANINE AMINOTRANSFERASE 148 U/L (21-72); ALBUMIN 4.1 g/dL (3.5-5.0); ALKALINE PHOSPHATASE 89 U/L (38-126); ANION GAP 10 (5-19); ASPARTATE AMINO TRANSFERASE 70 U/L (17-59); BILIRUBIN,DIRECT 0.2 mg/dL (0.0-0.4); BILIRUBIN,TOTAL 0.3 mg/dL (0.2-1.3); BLOOD UREA NITROGEN 47 mg/dL (7-20); CALCIUM 10.1 mg/dL (8.4-10.2); CARBON DIOXIDE 19 mmol/L (22-30); CHLORIDE 111 mmol/L (98-107); GLUCOSE 97 mg/dL (75-110); POTASSIUM 5.8 mmol/L (3.6-5.0); SODIUM 140.1 mmol/L (137-145); TOTAL PROTEIN 7.2 g/dL (6.3-8.2)
[2019-02-10 17:31] LABS: APPEARANCE,URINE SLIGHTLY-CLOUDY; BILIRUBIN,URINE NEGATIVE (NEGATIVE); COLOR,URINE YELLOW; GLUCOSE, URINE NEGATIVE (NEGATIVE); KETONES,URINE NEGATIVE (NEGATIVE); LEUKOCYTE ESTERASE,URINE MODERATE (NEGATIVE); NITRITE,URINE NEGATIVE (NEGATIVE); PROTEIN,URINE NEGATIVE (NEGATIVE); URINE SPECIFIC GRAVITY 1.011; UROBILINOGEN,URINE NEGATIVE mg/dL (<2.0)
[2019-02-10] MEDS ORDERED: NORMAL SALINE 1000 ML 1,000 ML IV ONE (18:10)
[2019-02-10] MEDS ORDERED: DEXTROSE 50%-WATER 25 GM/50 ML DISP.SYRIN IV ONE (18:11)
[2019-02-10] MEDS ORDERED: INSULIN REG, HUMAN 100 UNIT/ML 3 ML VIAL (PYX) IV ONE (18:11)
[2019-02-10] MEDS ORDERED: SODIUM POLYSTYRENE SULFONATE 15 GM/60 ML PO ONE ×2 (18:12→19:30)
[2019-02-10] MEDS ORDERED: CALCIUM GLUCONATE 1000 MG/10 ML INJ IV ONE (18:14)
[2019-02-10] MEDS ORDERED: ACETAMINOPHEN 325 MG TABLET PO PRN (18:23)
[2019-02-10] MEDS ORDERED: ONDANSETRON HCL INJ/PF 4 MG/2 ML SDV IV PRN (18:23)
[2019-02-10] MEDS ORDERED: NORMAL SALINE 1000 ML 1,000 ML IV PRN (18:23)
--- NOTE | 2019-02-10 18:25 | ER Document Report ---
ED General - General Chief Complaint: Abnormal Lab Results Stated Complaint: ABNORMAL LABS Time Seen by Provider: 02/10/19 14:57 Mode of Arrival: Ambulatory Information source: Patient Notes: This is a 73-year-old man with a history of chronic kidney disease, status post colectomy (multiple polyps, diverticular disease), history of hyperkalemia in the past who was referred to the emergency room because of an elevated potassium. Patient states he has had no recent illnesses and has done re latively well. He does drink a lot of orange juice which may contribute to the hyperkalemia. He is denied any fever, chills or abdominal pain at this time. TRAVEL OUTSIDE OF THE [place] IN LAST 30 DAYS: No - HPI Onset: Just prior to arrival Onset/Duration: Sudden Quality of pain: No pain Severity: None Pain Level: Denies Associated symptoms: denies: Chest pain, Fever, Shortness of breath Exacerbated by: Denies Relieved by: Denies Similar symptoms previously: No Recently seen / treated by doctor: No - Related Data Allergies/Adverse Reactions: niacin [From Niaspan Extended-Release] Allergy (Mild, Verified 02/10/19 14:42) Past Medical History - General Information source: Patient - Social History Smoking Status: Never Smoker Cigarette use (# per day): No Chew tobacco use (# tins/day): No Frequency of alcohol use: None Drug Abuse: None Lives with: Family Family History: CAD, Malignancy Patient has suicidal ideation: No Patient has homicidal ideation: No - Past Medical History Cardiac Medical History: Reports: Hx Coronary Artery Disease, Hx Hypercholesterolemia, Hx Hypertension Comment Only: Hx Heart Attack - ANGINA 2004 Pulmonary Medical History: Denies: Hx Asthma Neurological Medical History: Denies: Hx Cerebrovascular Accident, Hx Seizures Endocrine Medical History: Reports: Hx Diabetes Mellitus Type 2 Renal/ Medical History: Reports: Hx Kidney Stones. Denies: Hx Peritoneal Dialysis GI Medical History: Denies: Hx Hepatitis, Hx Hiatal Hernia, Hx Ulcer Musculoskeletal Medical History: Reports Hx Arthritis Infectious Medical History: Denies: Hx Hepatitis Past Surgical History: Reports: Hx Abdominal Surgery - part of colon removed, Hx Kidney (Renal Surgery). Denies: Hx Open Heart Surgery, Hx Pacemaker Review of Systems - Review of Systems Constitutional: denies: Chills, Fever EENT: No symptoms reported Cardiovascular: No symptoms reported Respiratory: No symptoms reported Gastrointestinal: No symptoms reported Genitourinary: No symptoms reported Male Genitourinary: No symptoms reported Musculoskeletal: No symptoms reported Skin: No symptoms reported Hematologic/Lymphatic: No symptoms reported Neurological/Psychological: No symptoms reported Physical Exam - Vital signs Vitals: Temp Pulse Resp BP Pulse Ox 97.5 F 50 L 16 95/53 L 99 02/10/19 14:51 02/10/19 14:51 02/10/19 14:51 02/10/19 14:51 02/10/19 14:51 Notes: Physical exam: GENERAL: Patient is alert and oriented x3, no acute distress HEAD: Atraumatic, normocephalic. EYES: Pupils equal round and reactive to light, extraocular movements intact, sclera anicteric, conjunctiva are normal. ENT: TMs normal, nares patent, oropharynx clear without exudates. Moist mucous membranes. NECK: Normal range of motion, supple without obvious mass or JVD. LUNGS: Breath sounds clear to auscultation bilaterally and equal. No wheezes rales or rhonchi. HEART: Regular rate and rhythm without murmurs, rubs or gallops. ABDOMEN: Soft, normoactive bowel sounds. Colostomy on the right abdomen wall. No tenderness to palpation. No guarding, no rebound. No masses appreciated. EXTREMITIES: Normal range of motion, no pitting or edema. No clubbing or cyanosis. NEUROLOGICAL: Cranial nerves II through XII grossly intact. Normal speech, moving all extremities. PSYCH: Normal mood, normal affect. SKIN: Warm, Dry, normal turgor, no rashes or lesions noted. Course - Re-evaluation Re-evalutation: 02/10/19 18:24 Patient looks relatively well however his potassium was 6. He is currently hemodynamically stable. Given his underlying chronic kidney disease, he is at risk of hyperkalemia. Given his resection of colon, he is at risk of dehydration. While he is not had any acute illnesses lately, he probably is very prone to dehydration and sure enough his BUN and creatinine look higher than they was previously. So I think the patient is having hyperkalemia in the setting of acute kidney injury in the setting of dehydration. 02/10/19 22:[address] Khanna who agrees with plan - Vital Signs Vital signs: Temp Pulse Resp BP Pulse Ox 98.2 F 50 L 16 107/57 L 97 02/10/19 21:23 02/10/19 14:51 02/10/19 21:23 02/10/19 21:23 02/10/19 21:23 - Laboratory Result Diagrams: 02/10/19 15:22 02/10/19 15:22 Laboratory results interpreted by me: 02/10/19 02/10/19 02/10/19 15:22 15:22 15:22 RBC 3.66 L Hgb 12.6 L MCV 104 H MCH 34.5 H RDW 15.0 H Potassium 5.8 H Chloride 111 H Carbon Dioxide 19 L BUN 47 H Creatinine 2.72 H Est GFR ( Amer) 28 L Est GFR (Non-Af Amer) 23 L AST 70 H ALT 148 H Ur Leukocyte Esterase MODERATE H Urine Ascorbic Acid 20 H - EKG Interpretation by Me Rate: Bradycardia - EKG shows sinus bradycardia with a ventricular rate of 54, there is an IVCD, no acute ST-T wave changes. Discharge - Discharge Clinical Impression: Hyperkalemia, Dehydration, Acute kidney injury Condition: Stable Disposition: ADMITTED OBSERVATION Admitting Provider: Jai (Hospitalist) Unit Admitted: Telemetry
[2019-02-10] MEDS ORDERED: NITROGLYCERIN 0.4 MG/TAB 25 TAB/BOTTLE SL PRN (18:28)
[2019-02-10] MEDS ORDERED: (PENDING PHARMACY ID) (Difluprednate [Durezol] 1 DROP) OP SCH (18:30)
[2019-02-10] MEDS ORDERED: ALLOPURINOL 300 MG TABLET PO SCH (18:30)
[2019-02-10] MEDS ORDERED: CLOBETASOL PROPIONATE 0.05% OINTMENT 15 GM TP SCH (18:30)
[2019-02-10] MEDS ORDERED: ASPIRIN 81 MG TABLET, CHEWABLE PO SCH (18:30)
[2019-02-10] MEDS ORDERED: USTEKINUMAB 45 MG SQ SCH (18:30)
[2019-02-10] MEDS ORDERED: ISOSORBIDE MONONITRATE 20 MG TABLET PO SCH (18:30)
[2019-02-10] MEDS ORDERED: (PENDING PHARMACY ID) (Fenofibrate,Micronized [Fenofibrate] 134 MG) PO SCH (18:30)
[2019-02-10] MEDS ORDERED: (PENDING PHARMACY ID) (Lipase/Protease/Amylase [Creon Dr 12,000 Units Capsule] 1 CAP) PO SCH (18:30)
[2019-02-10] MEDS ORDERED: (PENDING PHARMACY ID) (Apremilast [Otezla] 30 MG) PO SCH (18:30)
[2019-02-10] MEDS ORDERED: (PENDING PHARMACY ID) (Cholecalciferol (Vitamin D3) [Vitamin D3] 1 TAB) PO SCH (18:30)
[2019-02-10] MEDS ORDERED: GLUCAGON,HUMAN RECOMB 1 MG INJ IM PRN (18:34)
[2019-02-10] MEDS ORDERED: DEXTROSE 50%-WATER 25 GM/50 ML DISP.SYRIN IV PRN ×2 (18:34)
[2019-02-10] MEDS ORDERED: DEXTROSE 40% GEL 15 GM TUBE PO PRN ×2 (18:34)
--- NOTE | 2019-02-10 19:16 | PDOC H&P ---
History of Present Illness Admission Date/PCP: 02/10/19 18:34 DALE GILLIS MD Patient complains of: Abnormal labs History of Present Illness: MEL ACUÑA is a 73 year old male with history of for coronary artery disease, hypertension, diabetes mellitus, near total colectomy secondary to colonic polyps with ileostomy, CKD came to the emergency room after he was called by his animal husbandry technician office to notify him that potassium is 6.1. Patient is come to the emergency room for those abnormal lab results. Work-up in the ER indicates his creatinine was elevated from baseline 2.1-2.7. Repeat potassium in the ER 6.0. Medical consult was called for admission. Patient denies any nausea vomiting diarrhea fevers no change in appetite actually family members are telling me he is drinking lots of orange juices lately. Past Medical History Cardiac Medical History: Reports: Coronary Artery Disease, Hyperlipidema, H ypertension Comment Only: Myocardial Infarction - ANGINA 2004 Pulmonary Medical History: Denies: Asthma Neurological Medical History: Denies: Seizures Endocrine Medical History: Reports: Diabetes Mellitus Type 2 GI Medical History: Denies: Hepatitis, Hiatal Hernia Musculoskeltal Medical History: Reports: Arthritis Hematology: Denies: Anemia, Sickle Cell Disease Past Surgical History Past Surgical History: Denies: Pacemaker Social History Information Source: Patient Smoking Status: Former Smoker Hx Recreational Drug Use: No Hx Prescription Drug Abuse: No - Advance Directive Resuscitation Status: Full Code Family History Family History: CAD, Malignancy Parental Family History Reviewed: Yes - Family history of hypertension diabetes Children Family History Reviewed: Yes Sibling(s) Family History Reviewed.: Yes Medication/Allergy Home Medications: Allopurinol [Zyloprim] 300 mg PO DAILY 10/21/17 Apremilast [Otezla] 30 mg PO DAILY 10/21/17 Aspirin 81 mg PO DAILY 10/21/17 Besifloxacin HCl [Besivance 0.6% Oph Susp 5 ml] 1 drop OP ASDIR 10/21/17 Cholecalciferol (Vitamin D3) [Vitamin D3] 1 tab PO ASDIR 10/21/17 Colchicine [Colchicine 0.6 mg Tablet] 0.6 mg PO PRN PRN 10/21/17 Difluprednate [Durezol] 1 drop OP ASDIR 10/21/17 Fenofibrate,Micronized [Fenofibrate] 134 mg PO DAILY 10/21/17 Glipizide [Glipizide ER] 5 mg PO DAILY 10/21/17 Isosorbide Mononitrate [Ismo 20 Mg Tablet] 20 mg PO BID 10/21/17 Lipase/Protease/Amylase [Creon Dr 12,000 Units Capsule] 1 cap PO ASDIR 10/21/17 Lisinopril 1 tab PO DAILY 10/21/17 Meloxicam 7.5 mg PO DAILY 10/21/17 Metformin HCl [Metformin HCl ER] 500 mg PO BID 10/21/17 Metoprolol Succinate 50 mg PO QHS 10/21/17 Nepafenac [Ilevro] 1 drop OP ASDIR 10/21/17 Nitroglycerin 0.4 mg SL ASDIR PRN 10/21/17 Propylene Glycol/Peg 400/Pf [Systane 0.3-0.4% Eye Drops] 1 each OP ASDIR PRN 10/21/17 Rosuvastatin Calcium [Crestor] 40 mg PO QHS 10/21/17 Tamsulosin HCl [Flomax 0.4 mg Cap.sr] 0.4 mg PO DAILY 10/21/17 Ustekinumab [Stelara] 45 mg SQ . Q4 MONTHS 10/21/17 Zolpidem Tartrate 10 mg PO QHS PRN 10/21/17 Clobetasol Propionate [Clobetasol Propionate Ointment] 1 applic TP .QWKLY 10/22/17 Allergies/Adverse Reactions: niacin [From Niaspan Extended-Release] Allergy (Mild, Verified 02/10/19 14:42) Review of Systems Constitutional: ABSENT: fever(s), headache(s), weakness Eyes: ABSENT: visual disturbances Ears: ABSENT: hearing changes Cardiovascular: ABSENT: chest pain, dyspnea on exertion, edema, orthropnea, palpitations Gastrointestinal: ABSENT: abdominal pain, constipation, diarrhea, hematemesis, hematochezia, nausea, vomiting Neurological: ABSENT: abnormal gait, abnormal speech, confusion, dizziness, focal weakness, syncope Psychiatric: ABSENT: anxiety, depression, homidical ideation, suicidal ideation Physical Exam Vital Signs: Temp Pulse Resp BP Pulse Ox 97.5 F 50 L 16 117/69 99 02/10/19 14:51 02/10/19 14:51 02/10/19 18:35 02/10/19 18:35 02/10/19 18:35 Intake & Output 02/09/19 02/10/19 02/11/19 06:59 06:59 06:59 Weight 66.1 kg General appearance: PRESENT: no acute distress Head exam: PRESENT: atraumatic Eye exam: PRESENT: PERRLA Mouth exam: PRESENT: moist, tongue midline Teeth exam: PRESENT: poor dentation Neck exam: ABSENT: carotid bruit, JVD, lymphadenopathy, thyromegaly Respiratory exam: PRESENT: decreased breath sounds Cardiovascular exam: PRESENT: RRR. ABSENT: diastolic murmur, rubs, systolic murmur GI/Abdominal exam: PRESENT: other - Ileostomy Rectal exam: PRESENT: deferred Extremities exam: PRESENT: full ROM. ABSENT: calf tenderness, clubbing, pedal edema Neurological exam: PRESENT: alert, awake, oriented to person, oriented to place, oriented to time, oriented to situation, CN II-XII grossly intact. ABSENT: motor sensory deficit Psychiatric exam: PRESENT: appropriate affect, normal mood. ABSENT: homicidal ideation, suicidal ideation Results Laboratory Results: 02/10/19 15:22 02/10/19 15:22 02/10/19 02/10/19 02/10/19 15:22 15:22 15:22 WBC 5.7 RBC 3.66 L Hgb 12.6 L Hct 38.1 MCV 104 H MCH 34.5 H MCHC 33.1 RDW 15.0 H Plt Count 161 Seg Neutrophils % 58.4 Lymphocytes % 29.1 Monocytes % 9.9 Eosinophils % 2.0 Basophils % 0.6 Absolute Neutrophils 3.3 Absolute Lymphocytes 1.7 Absolute Monocytes 0.6 Absolute Eosinophils 0.1 Absolute Basophils 0.0 Sodium 140.1 Potassium 5.8 H Chloride 111 H Carbon Dioxide 19 L Anion Gap 10 BUN 47 H Creatinine 2.72 H Est GFR ( Amer) 28 L Est GFR (Non-Af Amer) 23 L Glucose 97 Calcium 10.1 Total Bilirubin 0.3 AST 70 H ALT 148 H Alkaline Phosphatase 89 Total Protein 7.2 Albumin 4.1 Urine Color YELLOW Urine Appearance SLIGHTLY-CLOUDY Urine pH 5.0 Ur Specific [place] 1.011 Urine Protein NEGATIVE Urine Glucose (UA) NEGATIVE Urine Ketones NEGATIVE Urine Blood NEGATIVE Urine Nitrite NEGATIVE Ur Leukocyte Esterase MODERATE H Urine WBC (Auto) 41 Urine RBC (Auto) 0 Assessment and Plan - Diagnosis (1) Acute kidney injury Is this a current diagnosis for this admission?: Yes Plan: 02/10/2019-patient was admitted for acute kidney injury creatinine today is 2.7. He is going to go to telemetry. To start on IV fluids normal saline 150 cc/h. To restart his home medications. GI prophylaxis DVT prophylaxis requested. Started on Kayexalate and Veltassa. (2) Hyperkalemia Is this a current diagnosis for this admission?: Yes Plan: 02/10/2019-patient serum potassium is 0.0 on admission improved to 5.8 with dextrose and insulin plan to give Kayexalate and Veltassa. (3) Chronic kidney disease Is this a current diagnosis for this admission?: Yes Plan: 02/10/2019 patient has history of chronic kidney disease with baseline creatinine is 2.1 looks like stage acute 3 kidney disease secondary to diabetes mellitus. - Time Time Spent with patient: 15-24 minutes Medications reviewed and adjusted accordingly: Yes Anticipated discharge: Home
[2019-02-10] MEDS: ENOXAPARIN SODIUM INJ 40 MG/0.4 ML DISP.SYRIN SUBCUT SCH (20:18)
[2019-02-10] MEDS: FAMOTIDINE 20 MG TABLET PO SCH (20:19)
[2019-02-10] MEDS: TAMSULOSIN HCL 0.4 MG CAP.SR.24H PO SCH (20:19)
[2019-02-10 20:33] LABS: TROPONIN I < 0.012 ng/mL
[2019-02-10 20:39] LABS: URINE AMPHETAMINES SCREEN NEGATIVE; URINE BARBITURATES SCREEN NEGATIVE; URINE BENZODIAZEPINES SCREEN NEGATIVE; URINE COCAINE SCREEN NEGATIVE; URINE MARIJUANA (THC) SCREEN NEGATIVE; URINE METHADONE SCREEN NEGATIVE; URINE PHENCYCLIDINE SCREEN NEGATIVE
[2019-02-10] MEDS ORDERED: METOPROLOL SUCCINATE 50 MG TAB.SR.24H PO SCH (22:00)
[2019-02-10] MEDS ORDERED: (PENDING PHARMACY ID) (Rosuvastatin Calcium [Crestor] 40 MG) PO SCH (22:00)
--- NOTE | 2019-02-10 22:32 | EKG REPORT ---
SEVERITY:- ABNORMAL ECG - SINUS RHYTHM NONSPECIFIC IVCD WITH LAD : Confirmed by: Alem Quintana MD 10-Feb-2019 22:32:14
[2019-02-10] MEDS: INSULIN REG, HUMAN 100 UNIT/ML 3 ML VIAL (PYX) SUBCUT SCH (23:18)
[2019-02-11 01:12] LABS: CREATINE KINASE MB 2.05 ng/mL (<4.55)
[2019-02-11 01:17] LABS: TROPONIN I < 0.012 ng/mL
[2019-02-11 07:38] LABS: ABSOLUTE EOSINOPHILS # (AUTO) 0.2 10^3/uL (0.0-0.6); ABSOLUTE LYMPHOCYTES (AUTO) 2.3 10^3/uL (0.5-4.7); ABSOLUTE MONOCYTES (AUTO) 0.6 10^3/uL (0.1-1.4); ABSOLUTE NEUT (AUTO) 3.2 10^3/uL (1.7-8.2); BASOPHILS % (AUTO) 0.7 % (0-2); EOSINOPHILS % (AUTO) 3.3 % (0-6); HEMATOCRIT 36.8 % (37.9-51.0); HEMOGLOBIN 12.2 g/dL (13.5-17.0); LYMPHOCYTES % (AUTO) 36.2 % (13-45); MEAN CORPUSCULAR HEMOGLOBIN 34.3 pg (27.0-33.4); MEAN CORPUSCULAR HGB CONC 33.3 g/dL (32.0-36.0); MEAN CORPUSCULAR VOLUME 103 fl (80-97); MONOCYTES % (AUTO) 9.3 % (3-13); PLATELET COUNT 165 10^3/uL (150-450); RED BLOOD COUNT 3.57 10^6/uL (4.35-5.55); SEGMENTED NEUTROPHILS % (AUTO) 50.5 % (42-78); TOTAL CELLS COUNTED % (AUTO) 100 %; WHITE BLOOD COUNT 6.3 10^3/uL (4.0-10.5)
[2019-02-11 08:02] LABS: ALANINE AMINOTRANSFERASE 143 U/L (21-72); ALBUMIN 3.4 g/dL (3.5-5.0); ALKALINE PHOSPHATASE 70 U/L (38-126); ANION GAP 8 (5-19); ASPARTATE AMINO TRANSFERASE 85 U/L (17-59); BILIRUBIN,DIRECT 0.3 mg/dL (0.0-0.4); BILIRUBIN,TOTAL 0.4 mg/dL (0.2-1.3); BLOOD UREA NITROGEN 43 mg/dL (7-20); CALCIUM 9.7 mg/dL (8.4-10.2); CARBON DIOXIDE 17 mmol/L (22-30); CHLORIDE 118 mmol/L (98-107); CREATINE KINASE 83 U/L (55-170); GLUCOSE 102 mg/dL (75-110); POTASSIUM 5.6 mmol/L (3.6-5.0); SODIUM 142.9 mmol/L (137-145); TOTAL PROTEIN 6.1 g/dL (6.3-8.2)
[2019-02-11 08:12] LABS: CREATINE KINASE MB 1.98 ng/mL (<4.55); TROPONIN I 0.012 ng/mL
[2019-02-11] MEDS: INSULIN REG, HUMAN 100 UNIT/ML 3 ML VIAL (PYX) SUBCUT SCH ×3 (08:34→16:45)
[2019-02-11] MEDS ORDERED: NORMAL SALINE 1000 ML 1,000 ML IV PRN (10:20)
[2019-02-11] MEDS: FAMOTIDINE 20 MG TABLET PO SCH ×2 (10:47→17:36)
[2019-02-11] MEDS: ENOXAPARIN SODIUM INJ 40 MG/0.4 ML DISP.SYRIN SUBCUT SCH (10:47)
[2019-02-11] MEDS ORDERED: LACTULOSE SYRUP 20 GM/30 ML UDCUP PO ONE (11:30)
--- NOTE | 2019-02-11 14:49 | PDOC PROGRESS REPORT ---
Subjective Progress Note for:: 02/11/19 Subjective:: MEL ACUÑA is a 73 year old male with history of for coronary artery disease, hypertension, diabetes mellitus, near total colectomy secondary to colonic polyps with ileostomy, CKD came to the emergency room after he was called by his manager transfer office to notify him that potassium is 6.1. Patient is come to the emergency room for those abnormal lab results. Work-up in the ER indicates his creatinine was elevated from baseline 2.1-2.7. Repeat potassium in the ER 6.0. Medical consult was called for admission. Patient denies any nausea vomiting diarrhea fevers no change. 02/11/2019. No acute events overnight. Has any nausea, vomiting, diarrhea, constipation or any urinary symptoms. Patient sees Dr. Candelaria manager transfer as outpatient also mentions that he has been drinking lots of orange juice and bananas. Reason For Visit: JOSHUA Physical Exam Vital Signs: Temp Pulse Resp BP Pulse Ox 97.8 F 63 16 135/52 H 98 02/11/19 09:19 02/11/19 09:19 02/11/19 09:19 02/11/19 09:19 02/11/19 09:19 Intake & Output 02/10/19 02/11/19 02/12/19 06:59 06:59 06:59 Weight 66.1 kg General appearance: PRESENT: no acute distress, well-developed, well-nourished Respiratory exam: PRESENT: clear to auscultation mel. ABSENT: rales, rhonchi, wheezes Cardiovascular exam: PRESENT: RRR. ABSENT: diastolic murmur, rubs, systolic murmur GI/Abdominal exam: PRESENT: normal bowel sounds, soft, other - PEG tube in place. ABSENT: distended, guarding, mass, organolmegaly, rebound, tenderness Extremities exam: PRESENT: full ROM. ABSENT: calf tenderness, clubbing, pedal edema Neurological exam: PRESENT: alert, awake, oriented to person, oriented to place, oriented to time, oriented to situation, CN II-XII grossly intact. ABSENT: motor sensory deficit Results Laboratory Results: 02/11/19 07:06 02/11/19 07:06 02/10/19 02/10/19 02/10/19 15:22 15:22 15:22 WBC 5.7 RBC 3.66 L Hgb 12.6 L Hct 38.1 MCV 104 H MCH 34.5 H MCHC 33.1 RDW 15.0 H Plt Count 161 Seg Neutrophils % 58.4 Lymphocytes % 29.1 Monocytes % 9.9 Eosinophils % 2.0 Basophils % 0.6 Absolute Neutrophils 3.3 Absolute Lymphocytes 1.7 Absolute Monocytes 0.6 Absolute Eosinophils 0.1 Absolute Basophils 0.0 Sodium 140.1 Potassium 5.8 H Chloride 111 H Carbon Dioxide 19 L Anion Gap 10 BUN 47 H Creatinine 2.72 H Est GFR ( Amer) 28 L Est GFR (Non-Af Amer) 23 L Glucose 97 Calcium 10.1 Magnesium Total Bilirubin 0.3 AST 70 H ALT 148 H Alkaline Phosphatase 89 Total Protein 7.2 Albumin 4.1 TSH Urine Color YELLOW Urine Appearance SLIGHTLY-CLOUDY Urine pH 5.0 Ur Specific [place] 1.011 Urine Protein NEGATIVE Urine Glucose (UA) NEGATIVE Urine Ketones NEGATIVE Urine Blood NEGATIVE Urine Nitrite NEGATIVE Ur Leukocyte Esterase MODERATE H Urine WBC (Auto) 41 Urine RBC (Auto) 0 02/11/19 02/11/19 02/11/19 07:06 07:06 07:06 WBC 6.3 RBC 3.57 L Hgb 12.2 L Hct 36.8 L MCV 103 H MCH 34.3 H MCHC 33.3 RDW 15.0 H Plt Count 165 Seg Neutrophils % 50.5 Lymphocytes % 36.2 Monocytes % 9.3 Eosinophils % 3.3 Basophils % 0.7 Absolute Neutrophils 3.2 Absolute Lymphocytes 2.3 Absolute Monocytes 0.6 Absolute Eosinophils 0.2 Absolute Basophils 0.0 Sodium 142.9 Potassium 5.6 H Chloride 118 H Carbon Dioxide 17 L Anion Gap 8 BUN 43 H Creatinine 2.19 H Est GFR ( Amer) 36 L Est GFR (Non-Af Amer) 30 L Glucose 102 Calcium 9.7 Magnesium 1.7 Total Bilirubin 0.4 AST 85 H ALT 143 H Alkaline Phosphatase 70 Total Protein 6.1 L Albumin 3.4 L TSH 2.49 Urine Color Urine Appearance Urine pH Ur Specific [place] Urine Protein Urine Glucose (UA) Urine Ketones Urine Blood Urine Nitrite Ur Leukocyte Esterase Urine WBC (Auto) Urine RBC (Auto) 02/10/19 02/10/19 02/11/19 19:25 19:25 00:30 Creatine Kinase 86 78 CK-MB (CK-2) 2.30 Troponin I < 0.012 NT-Pro-B Natriuret Pep 02/11/19 02/11/19 02/11/19 00:30 07:06 07:06 Creatine Kinase 83 CK-MB (CK-2) 2.05 1.98 Troponin I < 0.012 0.012 NT-Pro-B Natriuret Pep 719 Assessment and Plan - Diagnosis (1) Acute kidney injury Is this a current diagnosis for this admission?: Yes Plan: Due to to worsening CKD and excessive potassium intake. Patient endorses excessive orange juice and banana intake. Potassium 5.6 down from 5.8 on admission. Creatinine 2.19 down from 2.72, baseline 2.31 Continue Veltassa, lactulose. Not give Kayexalate due to national shortage. Start on low potassium diet. Monitor electrolytes and volume status. Sees Dr. Candelaria manager transfer as outpatient. Follow-up with nephrology and PCP as outpatient. (2) Chronic kidney disease Is this a current diagnosis for this admission?: Yes Plan: As per #1. (3) Hyperkalemia Is this a current diagnosis for this admission?: Yes Plan: As per #1. (4) PEG (percutaneous endoscopic gastrostomy) status Is this a current diagnosis for this admission?: No Plan: History of colectomy. Continue PEG tube care.
--- NOTE | 2019-02-11 16:27 | PDOC CONSULTATION ---
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 Currently followed by Dr. Gillis for the CKD. Labs prior to his visit showed a potassium of 6.1. Patient was called by Dr. Gillis's MA and advised that Dr. Gillis wanted him to go to the ER for monitoring while the potassium was reduced. Patient denied any hyperkalemia s/s at the time of being called. In the ER his creatinine was 2.7, which is slightly elevated from his baseline of 2.1. Repeat potassium in the ER was 6.0. Patient was admitted and due to national shortage of kayexelate he was given veltassa instead. Potassium slightly lowered to the upper 5s. Creatinine is at baseline. He had lactulose added to his regiment of veltassa. Patient admits to consuming a large amount of OJ, bananas and oranges on a daily bases for the past few weeks. He denies any s/s of hyperkalemia. He denies chest pain, SOB, N/V/D/C. Past Medical History Cardiac Medical History: Reports: Coronary Artery Disease, Hyperlipidemia Comment Only: Myocardial Infarction - ANGINA 2004 Pulmonary Medical History: Denies: Asthma Neurological Medical History: Denies: Seizures Endocrine Medical History: Reports: Diabetes Mellitus Type 2 GI Medical History: Denies: Hepatitis, Hiatal Hernia Musculoskeltal Medical History: Reports: Arthritis Psychiatric Medical History: Denies: Depression Past Surgical History Past Surgical History: Denies: Pacemaker Social History Lives with: Family Smoking Status: Smoker,Current Status Unk Frequency of Alcohol Use: Social Hx Recreational Drug Use: No Drugs: None Hx Prescription Drug Abuse: No - Advance Directive Resuscitation Status: Full Code Family History Parental Family History Reviewed: Yes Children Family History Reviewed: Unknown Sibling(s) Family History Reviewed.: Unknown Medication/Allergy Home Medications: Famotidine [Pepcid 20 mg Tablet] 20 mg PO BID 02/10/19 Glipizide [Glipizide Xl] 5 mg PO BID 02/10/19 Magnesium Oxide [Mag-Ox 400 mg Tablet] 400 mg PO DAILY 02/10/19 Metoprolol Tartrate [Lopressor 25 mg Tablet] 12.5 mg PO Q12 02/10/19 Rosuvastatin Calcium [Crestor] 40 mg PO QHS 02/10/19 Tamsulosin HCl [Flomax 0.4 mg Cap.sr] 0.4 mg PO QPM 02/10/19 Allergies/Adverse Reactions: niacin [From Niaspan Extended-Release] Allergy (Mild, Verified 02/10/19 14:42) Review of Systems Constitutional: ABSENT: chills, fever(s), weakness, weight gain, weight loss Eyes: ABSENT: visual disturbances Nose, Mouth, and Throat: ABSENT: headache(s) Cardiovascular: ABSENT: chest pain, dyspnea on exertion, edema, orthropnea, palpitations Respiratory: ABSENT: cough, dyspnea, sputum Gastrointestinal: ABSENT: abdominal pain, constipation, diarrhea, nausea, vomiting Genitourinary: ABSENT: difficulty urinating, dysuria, nocturia Musculoskeletal: ABSENT: back pain, muscle weakness Neurological: ABSENT: confusion, dizziness, focal weakness, numbness, weakness Psychiatric: ABSENT: anxiety, depression Physical Exam Vital Signs: Temp Pulse Resp BP Pulse Ox 97.8 F 63 16 135/52 H 98 02/11/19 09:19 02/11/19 09:19 02/11/19 09:19 02/11/19 09:19 02/11/19 09:19 Intake & Output 02/10/19 02/11/19 02/12/19 06:59 06:59 06:59 Weight 66.1 kg General appearance: PRESENT: no acute distress, well-developed, well-nourished Eye exam: PRESENT: PERRLA. ABSENT: scleral icterus Mouth exam: PRESENT: moist, neck supple Neck exam: ABSENT: JVD, tracheal deviation Respiratory exam: PRESENT: clear to auscultation mel. ABSENT: crackles, rales, rhonchi, wheezes Cardiovascular exam: PRESENT: RRR, +S1, +S2 GI/Abdominal exam: PRESENT: soft. ABSENT: tenderness Extremities exam: ABSENT: tenderness, +1 edema, +2 edema Musculoskeletal exam: PRESENT: normal inspection. ABSENT: tenderness Neurological exam: PRESENT: alert, awake, oriented to person, oriented to place, oriented to time, oriented to situation Psychiatric exam: PRESENT: appropriate affect, normal mood Skin exam: PRESENT: dry, intact, warm Results Laboratory Results: 02/11/19 07:06 02/11/19 07:06 02/10/19 02/10/19 02/10/19 15:22 15:22 15:22 WBC 5.7 RBC 3.66 L Hgb 12.6 L Hct 38.1 MCV 104 H MCH 34.5 H MCHC 33.1 RDW 15.0 H Plt Count 161 Seg Neutrophils % 58.4 Lymphocytes % 29.1 Monocytes % 9.9 Eosinophils % 2.0 Basophils % 0.6 Absolute Neutrophils 3.3 Absolute Lymphocytes 1.7 Absolute Monocytes 0.6 Absolute Eosinophils 0.1 Absolute Basophils 0.0 Sodium 140.1 Potassium 5.8 H Chloride 111 H Carbon Dioxide 19 L Anion Gap 10 BUN 47 H Creatinine 2.72 H Est GFR ( Amer) 28 L Est GFR (Non-Af Amer) 23 L Glucose 97 Calcium 10.1 Magnesium Total Bilirubin 0.3 AST 70 H ALT 148 H Alkaline Phosphatase 89 Total Protein 7.2 Albumin 4.1 TSH Urine Color YELLOW Urine Appearance SLIGHTLY-CLOUDY Urine pH 5.0 Ur Specific Dillon 1.011 Urine Protein NEGATIVE Urine Glucose (UA) NEGATIVE Urine Ketones NEGATIVE Urine Blood NEGATIVE Urine Nitrite NEGATIVE Ur Leukocyte Esterase MODERATE H Urine WBC (Auto) 41 Urine RBC (Auto) 0 02/11/19 02/11/19 02/11/19 07:06 07:06 07:06 WBC 6.3 RBC 3.57 L Hgb 12.2 L Hct 36.8 L MCV 103 H MCH 34.3 H MCHC 33.3 RDW 15.0 H Plt Count 165 Seg Neutrophils % 50.5 Lymphocytes % 36.2 Monocytes % 9.3 Eosinophils % 3.3 Basophils % 0.7 Absolute Neutrophils 3.2 Absolute Lymphocytes 2.3 Absolute Monocytes 0.6 Absolute Eosinophils 0.2 Absolute Basophils 0.0 Sodium 142.9 Potassium 5.6 H Chloride 118 H Carbon Dioxide 17 L Anion Gap 8 BUN 43 H Creatinine 2.19 H Est GFR ( Amer) 36 L Est GFR (Non-Af Amer) 30 L Glucose 102 Calcium 9.7 Magnesium 1.7 Total Bilirubin 0.4 AST 85 H ALT 143 H Alkaline Phosphatase 70 Total Protein 6.1 L Albumin 3.4 L TSH 2.49 Urine Color Urine Appearance Urine pH Ur Specific Dillon Urine Protein Urine Glucose (UA) Urine Ketones Urine Blood Urine Nitrite Ur Leukocyte Esterase Urine WBC (Auto) Urine RBC (Auto) 02/10/19 02/10/19 02/11/19 19:25 19:25 00:30 Creatine Kinase 86 78 CK-MB (CK-2) 2.30 Troponin I < 0.012 NT-Pro-B Natriuret Pep 02/11/19 02/11/19 02/11/19 00:30 07:06 07:06 Creatine Kinase 83 CK-MB (CK-2) 2.05 1.98 Troponin I < 0.012 0.012 NT-Pro-B Natriuret Pep 719 Assessment & Plan - Diagnosis (1) Chronic kidney disease Is this a current diagnosis for this admission?: Yes Plan: looks to be at baseline, once potassium is controlled he is stable for discharge. Recommend following up with Dr. Gillis at his normal appointment time. (2) Hyperkalemia Is this a current diagnosis for this admission?: Yes Plan: Potassium is elevated due to increased dietary intake of potassium. Discussed with him about a proper low potassium diet. Discussed with his nurse in charge of his care about adding low potassium to his diet for the hospital. Several foods found on his tray when examining him are known to be high in potassium. Continue with veltassa and lactulose.
[2019-02-11] MEDS ORDERED: PATIROMER 8.4 GM SUSP PACKET PO SCH (17:00)
[2019-02-11] MEDS: PATIROMER 8.4 GM SUSP PACKET PO SCH (17:36)
[2019-02-11] MEDS: TAMSULOSIN HCL 0.4 MG CAP.SR.24H PO SCH (17:36)
[2019-02-12] MEDS: INSULIN REG, HUMAN 100 UNIT/ML 3 ML VIAL (PYX) SUBCUT SCH ×2 (00:09→10:24)
[2019-02-12 06:54] LABS: ABSOLUTE EOSINOPHILS # (AUTO) 0.2 10^3/uL (0.0-0.6); ABSOLUTE LYMPHOCYTES (AUTO) 2.2 10^3/uL (0.5-4.7); ABSOLUTE MONOCYTES (AUTO) 0.7 10^3/uL (0.1-1.4); ABSOLUTE NEUT (AUTO) 4.2 10^3/uL (1.7-8.2); BASOPHILS % (AUTO) 0.6 % (0-2); EOSINOPHILS % (AUTO) 2.4 % (0-6); HEMATOCRIT 38.3 % (37.9-51.0); HEMOGLOBIN 12.7 g/dL (13.5-17.0); MEAN CORPUSCULAR HEMOGLOBIN 34.3 pg (27.0-33.4); MEAN CORPUSCULAR HGB CONC 33.1 g/dL (32.0-36.0); MEAN CORPUSCULAR VOLUME 104 fl (80-97); MONOCYTES % (AUTO) 9.7 % (3-13); PLATELET COUNT 177 10^3/uL (150-450); SEGMENTED NEUTROPHILS % (AUTO) 57.3 % (42-78); TOTAL CELLS COUNTED % (AUTO) 100 %; WHITE BLOOD COUNT 7.3 10^3/uL (4.0-10.5)
[2019-02-12 07:20] LABS: ALANINE AMINOTRANSFERASE 127 U/L (21-72); ALBUMIN 3.6 g/dL (3.5-5.0); ALKALINE PHOSPHATASE 89 U/L (38-126); ANION GAP 7 (5-19); ASPARTATE AMINO TRANSFERASE 50 U/L (17-59); BILIRUBIN,DIRECT 0.3 mg/dL (0.0-0.4); BILIRUBIN,TOTAL 0.3 mg/dL (0.2-1.3); BLOOD UREA NITROGEN 40 mg/dL (7-20); CALCIUM 10.4 mg/dL (8.4-10.2); CARBON DIOXIDE 15 mmol/L (22-30); CHLORIDE 119 mmol/L (98-107); GLUCOSE 101 mg/dL (75-110); POTASSIUM 5.3 mmol/L (3.6-5.0); SODIUM 141.2 mmol/L (137-145); TOTAL PROTEIN 6.6 g/dL (6.3-8.2)
[2019-02-12] MEDS ORDERED: DEXTROSE 40% GEL 15 GM TUBE PO PRN ×2 (08:19)
[2019-02-12] MEDS ORDERED: GLUCAGON,HUMAN RECOMB 1 MG INJ IM PRN (08:19)
[2019-02-12] MEDS ORDERED: DEXTROSE 50%-WATER 25 GM/50 ML DISP.SYRIN IV PRN ×2 (08:19)
[2019-02-12] MEDS: ENOXAPARIN SODIUM INJ 40 MG/0.4 ML DISP.SYRIN SUBCUT SCH (10:53)
[2019-02-12] MEDS: FAMOTIDINE 20 MG TABLET PO SCH (10:53)
[2019-02-12] MEDS: LACTULOSE SYRUP 20 GM/30 ML UDCUP PO SCH ×2 (10:54→17:09)
[2019-02-12] MEDS: INSULIN LISPRO 100 UNIT/ML 3 ML VIAL SUBCUT SCH ×3 (11:59→23:02)
--- NOTE | 2019-02-12 13:01 | PDOC PROGRESS REPORT ---
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 Patient is come to the emergency room for those abnormal lab results. Work-up in the ER indicates his creatinine was elevated from baseline 2.1-2.7. Repeat potassium in the ER 6.0. Medical consult was called for admission. Patient denies any nausea vomiting diarrhea fevers no change. 02/11/2019. No acute events overnight. Has any nausea, vomiting, diarrhea, constipation or any urinary symptoms. Patient sees Dr. Candelaria heavy truck mechanic as outpatient also mentions that he has been drinking lots of orange juice and bananas. 02/12/2019. No acute events overnight. Denies any fever, chills, nausea, vomiting, diarrhea, constipation or any urinary symptoms. Patient is ambulatory having normal bowel (ostomy in place) and bladder movements. 02/12/2019. SBP 109-136, T-max 97.5, HR 50-60, RR 16-20, SPO2 100% room air. WBC 7.3, hemoglobin 12.7, platelet 177, sodium 141, potassium 5.3, down from 5.8 on admission, creatinine 2.05 down from 2.19, Reason For Visit: JOSHUA Physical Exam Vital Signs: Temp Pulse Resp BP Pulse Ox 97.5 F 61 16 132/59 H 99 02/12/19 11:05 02/12/19 11:05 02/12/19 11:05 02/12/19 11:05 02/12/19 11:05 Intake & Output 02/11/19 02/12/19 02/13/19 06:59 06:59 06:59 Intake Total 658 Balance 658 Weight 66.1 kg 62.6 kg General appearance: PRESENT: no acute distress, well-developed, well-nourished Head exam: PRESENT: atraumatic, normocephalic Eye exam: PRESENT: conjunctiva pink, EOMI, PERRLA. ABSENT: scleral icterus Ear exam: PRESENT: normal external ear exam Mouth exam: PRESENT: moist, tongue midline Neck exam: ABSENT: carotid bruit, JVD, lymphadenopathy, thyromegaly Respiratory exam: PRESENT: clear to auscultation mel. ABSENT: rales, rhonchi, wheezes Cardiovascular exam: PRESENT: RRR. ABSENT: diastolic murmur, rubs, systolic murmur Pulses: PRESENT: normal dorsalis pedis pul Vascular exam: PRESENT: normal capillary refill GI/Abdominal exam: PRESENT: normal bowel sounds, soft, other - Ostomye in place, and intact.. ABSENT: distended, guarding, mass, organolmegaly, rebound, tenderness Rectal exam: PRESENT: deferred Extremities exam: PRESENT: full ROM. ABSENT: calf tenderness, clubbing, pedal edema Neurological exam: PRESENT: alert, awake, oriented to person, oriented to place, oriented to time, oriented to situation, CN II-XII grossly intact. ABSENT: motor sensory deficit Psychiatric exam: PRESENT: appropriate affect, normal mood. ABSENT: homicidal ideation, suicidal ideation Skin exam: PRESENT: dry, intact, warm. ABSENT: cyanosis, rash Results Laboratory Results: 02/12/19 06:20 02/12/19 06:20 02/12/19 02/12/19 06:20 06:20 WBC 7.3 RBC 3.70 L Hgb 12.7 L Hct 38.3 MCV 104 H MCH 34.3 H MCHC 33.1 RDW 15.0 H Plt Count 177 Seg Neutrophils % 57.3 Lymphocytes % 30.0 Monocytes % 9.7 Eosinophils % 2.4 Basophils % 0.6 Absolute Neutrophils 4.2 Absolute Lymphocytes 2.2 Absolute Monocytes 0.7 Absolute Eosinophils 0.2 Absolute Basophils 0.0 Sodium 141.2 Potassium 5.3 H Chloride 119 H Carbon Dioxide 15 L Anion Gap 7 BUN 40 H Creatinine 2.05 H Est GFR ( Amer) 39 L Est GFR (Non-Af Amer) 32 L Glucose 101 Calcium 10.4 H Magnesium 1.7 Total Bilirubin 0.3 AST 50 ALT 127 H Alkaline Phosphatase 89 Total Protein 6.6 Albumin 3.6 02/10/19 02/10/19 02/11/19 19:25 19:25 00:30 Creatine Kinase 86 78 CK-MB (CK-2) 2.30 Troponin I < 0.012 NT-Pro-B Natriuret Pep 05/08/19 05/08/19 05/08/19 00:30 07:06 07:06 Creatine Kinase 83 CK-MB (CK-2) 2.05 1.98 Troponin I < 0.012 0.012 NT-Pro-B Natriuret Pep 719 Assessment and Plan - Diagnosis (1) Acute kidney injury Is this a current diagnosis for this admission?: Yes Plan: Improving. Due to to worsening CKD and excessive potassium intake. Patient endorses excessive orange juice and banana intake. 02/12/2019. Sodium 141, potassium 5.3, down from 5.8 on admission, creatinine 2.05 down from 2.19, 02/11/2019. Potassium 5.6 down from 5.8 on admission. Creatinine 2.19 down from 2.72, baseline 2.31 Continue Veltassa, lactulose. Not give Kayexalate due to national shortage. Start on low potassium diet. Monitor electrolytes and volume status. Sees Dr. Candelaria heavy truck mechanic as outpatient. Follow-up with nephrology and PCP as outpatient. (2) Chronic kidney disease Is this a current diagnosis for this admission?: Yes Plan: As per #1. (3) Hyperkalemia Is this a current diagnosis for this admission?: Yes Plan: As per #1. (4) PEG (percutaneous endoscopic gastrostomy) status Is this a current diagnosis for this admission?: No Plan: History of colectomy. Continue PEG tube care.
[2019-02-12] MEDS ORDERED: ACETAMINOPHEN 325 MG TABLET PO PRN (14:30)
[2019-02-12] MEDS ORDERED: ONDANSETRON HCL INJ/PF 4 MG/2 ML SDV IV PRN (14:30)
[2019-02-12] MEDS: NORMAL SALINE 1000 ML 1,000 ML IV PRN (16:00)
[2019-02-12] MEDS: TAMSULOSIN HCL 0.4 MG CAP.SR.24H PO SCH (17:09)
[2019-02-12] MEDS: PATIROMER 8.4 GM SUSP PACKET PO SCH (17:09)
[2019-02-13] MEDS: NORMAL SALINE 1000 ML 1,000 ML IV PRN ×2 (00:40→18:09)
[2019-02-13 03:43] LABS: ABSOLUTE BASOPHILS # (AUTO) 0.1 10^3/uL (0.0-0.2); ABSOLUTE EOSINOPHILS # (AUTO) 0.2 10^3/uL (0.0-0.6); ABSOLUTE LYMPHOCYTES (AUTO) 2.1 10^3/uL (0.5-4.7); ABSOLUTE MONOCYTES (AUTO) 0.6 10^3/uL (0.1-1.4); EOSINOPHILS % (AUTO) 2.4 % (0-6); HEMATOCRIT 36.8 % (37.9-51.0); HEMOGLOBIN 12.3 g/dL (13.5-17.0); LYMPHOCYTES % (AUTO) 29.9 % (13-45); MEAN CORPUSCULAR HEMOGLOBIN 34.4 pg (27.0-33.4); MEAN CORPUSCULAR HGB CONC 33.3 g/dL (32.0-36.0); MEAN CORPUSCULAR VOLUME 103 fl (80-97); MONOCYTES % (AUTO) 9.2 % (3-13); PLATELET COUNT 181 10^3/uL (150-450); RED BLOOD COUNT 3.56 10^6/uL (4.35-5.55); RED CELL DISTRIBUTION WIDTH 15.3 % (11.5-14.0); SEGMENTED NEUTROPHILS % (AUTO) 57.5 % (42-78); TOTAL CELLS COUNTED % (AUTO) 100 %
[2019-02-13 04:00] LABS: ALANINE AMINOTRANSFERASE 104 U/L (21-72); ALBUMIN 3.2 g/dL (3.5-5.0); ALKALINE PHOSPHATASE 80 U/L (38-126); ANION GAP 7 (5-19); ASPARTATE AMINO TRANSFERASE 36 U/L (17-59); BILIRUBIN,DIRECT 0.2 mg/dL (0.0-0.4); BILIRUBIN,TOTAL 0.3 mg/dL (0.2-1.3); BLOOD UREA NITROGEN 42 mg/dL (7-20); CALCIUM 9.9 mg/dL (8.4-10.2); CARBON DIOXIDE 16 mmol/L (22-30); CHLORIDE 118 mmol/L (98-107); GLUCOSE 96 mg/dL (75-110); POTASSIUM 5.1 mmol/L (3.6-5.0); SODIUM 141.4 mmol/L (137-145)
[2019-02-13] MEDS: INSULIN LISPRO 100 UNIT/ML 3 ML VIAL SUBCUT SCH ×4 (09:00→21:23)
[2019-02-13] MEDS: LACTULOSE SYRUP 20 GM/30 ML UDCUP PO SCH ×2 (09:58→18:05)
[2019-02-13] MEDS: ENOXAPARIN SODIUM INJ 30 MG/0.3 ML DISP.SYRIN SUBCUT SCH (09:59)
[2019-02-13] MEDS: FAMOTIDINE 20 MG TABLET PO SCH (09:59)
[2019-02-13] MEDS ORDERED: SODIUM POLYSTYRENE SULFONATE 15 GM/60 ML PO ONE (10:00)
[2019-02-13 15:30] LABS: ANION GAP 8 (5-19); BLOOD UREA NITROGEN 41 mg/dL (7-20); CARBON DIOXIDE 16 mmol/L (22-30); CHLORIDE 119 mmol/L (98-107); GLUCOSE 126 mg/dL (75-110); POTASSIUM 5.5 mmol/L (3.6-5.0)
--- NOTE | 2019-02-13 16:37 | PDOC PROGRESS REPORT ---
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 Patient is come to the emergency room for those abnormal lab results. Work-up in the ER indicates his creatinine was elevated from baseline 2.1-2.7. Repeat potassium in the ER 6.0. Medical consult was called for admission. Patient denies any nausea vomiting diarrhea fevers no change. 02/11/2019. No acute events overnight. Has any nausea, vomiting, diarrhea, constipation or any urinary symptoms. Patient sees Dr. Candelaria trimming caser as outpatient also mentions that he has been drinking lots of orange juice and bananas. 02/12/2019. No acute events overnight. Denies any fever, chills, nausea, vomiting, diarrhea, constipation or any urinary symptoms. Patient is ambulatory having normal bowel (ostomy in place) and bladder movements. 02/13/2019. No acute events overnight. P.o. tolerant, ambulatory, having normal bowel and bladder functions. Denies any fever, chills, nausea, vomiting, diarrhea, constipation or any urinary symptoms. Plan was to discharge patient home unfortunately potassium of five-point 9 in the morning and repeat potassium in the evening is up from 5.1-5.5. Patient received 1 dose of Kayexalate and he is on Veltassa daily. WBC 7.0, hemoglobin 12.3, platelets 181, sodium 143, potassium 5.5 up from 5.1 this morning, creatinine 2.03 down from 2.26, FSG 96, POC glucose 96-163, Reason For Visit: JOSHUA Physical Exam Vital Signs: Temp Pulse Resp BP Pulse Ox 97.6 F 65 17 112/49 L 98 02/13/19 11:28 02/13/19 11:28 02/13/19 11:28 02/13/19 11:28 02/13/19 11:28 Intake & Output 02/12/19 02/13/19 02/14/19 06:59 06:59 06:59 Intake Total 658 2157 1000 Output Total 400 Balance 658 1757 1000 Weight 62.6 kg 63.9 kg General appearance: PRESENT: no acute distress, well-developed, well-nourished Head exam: PRESENT: atraumatic, normocephalic Eye exam: PRESENT: conjunctiva pink, EOMI, PERRLA. ABSENT: scleral icterus Ear exam: PRESENT: normal external ear exam Mouth exam: PRESENT: moist, tongue midline Neck exam: ABSENT: carotid bruit, JVD, lymphadenopathy, thyromegaly Respiratory exam: PRESENT: clear to auscultation mel. ABSENT: rales, rhonchi, wheezes Cardiovascular exam: PRESENT: RRR. ABSENT: diastolic murmur, rubs, systolic murmur Pulses: PRESENT: normal dorsalis pedis pul Vascular exam: PRESENT: normal capillary refill GI/Abdominal exam: PRESENT: normal bowel sounds, soft, other - ostomy in place.. ABSENT: distended, guarding, mass, organolmegaly, rebound, tenderness Rectal exam: PRESENT: deferred Extremities exam: PRESENT: full ROM. ABSENT: calf tenderness, clubbing, pedal edema Neurological exam: PRESENT: alert, awake, oriented to person, oriented to place, oriented to time, oriented to situation, CN II-XII grossly intact. ABSENT: motor sensory deficit Psychiatric exam: PRESENT: appropriate affect, normal mood. ABSENT: homicidal ideation, suicidal ideation Skin exam: PRESENT: dry, intact, warm. ABSENT: cyanosis, rash Results Laboratory Results: 02/13/19 03:00 02/13/19 14:59 02/13/19 02/13/19 02/13/19 03:00 03:00 14:59 WBC 7.0 RBC 3.56 L Hgb 12.3 L Hct 36.8 L MCV 103 H MCH 34.4 H MCHC 33.3 RDW 15.3 H Plt Count 181 Seg Neutrophils % 57.5 Lymphocytes % 29.9 Monocytes % 9.2 Eosinophils % 2.4 Basophils % 1.0 Absolute Neutrophils 4.0 Absolute Lymphocytes 2.1 Absolute Monocytes 0.6 Absolute Eosinophils 0.2 Absolute Basophils 0.1 Sodium 141.4 143.0 Potassium 5.1 H 5.5 H Chloride 118 H 119 H Carbon Dioxide 16 L 16 L Anion Gap 7 8 BUN 42 H 41 H Creatinine 2.26 H 2.03 H Est GFR ( Amer) 35 L 39 L Est GFR (Non-Af Amer) 29 L 32 L Glucose 96 126 H Calcium 9.9 10.0 Magnesium 1.6 Total Bilirubin 0.3 AST 36 ALT 104 H Alkaline Phosphatase 80 Total Protein 6.0 L Albumin 3.2 L 02/10/19 15:22 Clean Catch Midstream Urine Culture - Final C.albicans/C.dubliniensis Mixed Urogenital Ashlee 02/10/19 02/10/19 02/11/19 19:25 19:25 00:30 Creatine Kinase 86 78 CK-MB (CK-2) 2.30 Troponin I < 0.012 NT-Pro-B Natriuret Pep 02/11/19 02/11/19 02/11/19 00:30 07:06 07:06 Creatine Kinase 83 CK-MB (CK-2) 2.05 1.98 Troponin I < 0.012 0.012 NT-Pro-B Natriuret Pep 719 Assessment and Plan - Diagnosis (1) Acute kidney injury Is this a current diagnosis for this admission?: Yes Plan: Improving. Due to to worsening CKD and excessive potassium intake. Patient endorses excessive orange juice and banana intake. 02/13/2019. Sodium 143, potassium 5.5 up from 5.1 this morning, creatinine 2.03 down from 2.26 02/12/2019. Sodium 141, potassium 5.3, down from 5.8 on admission, creatinine 2.05 down from 2.19, 02/11/2019. Potassium 5.6 down from 5.8 on admission. Creatinine 2.19 down from 2.72, baseline 2.31 Continue Veltassa, lactulose. Can not give daily Kayexalate due to national shortage. Start on low potassium diet. Monitor electrolytes and volume status. Sees Dr. Candelaria trimming caser as outpatient. Follow-up with nephrology and PCP as outpatient. BMP tomorrow. If potassium less than 5 will DC home. (2) Chronic kidney disease Is this a current diagnosis for this admission?: Yes Plan: As per #1. (3) Hyperkalemia Is this a current diagnosis for this admission?: Yes Plan: As per #1. (4) PEG (percutaneous endoscopic gastrostomy) status Is this a current diagnosis for this admission?: No Plan: History of colectomy. Continue PEG tube care.
[2019-02-13] MEDS: TAMSULOSIN HCL 0.4 MG CAP.SR.24H PO SCH (18:05)
[2019-02-13] MEDS: PATIROMER 8.4 GM SUSP PACKET PO SCH (18:06)
[2019-02-14] MEDS: NORMAL SALINE 1000 ML 1,000 ML IV PRN (03:21)
[2019-02-14 06:11] LABS: ANION GAP 8 (5-19); BLOOD UREA NITROGEN 36 mg/dL (7-20); CALCIUM 9.6 mg/dL (8.4-10.2); CARBON DIOXIDE 16 mmol/L (22-30); CHLORIDE 119 mmol/L (98-107); GLUCOSE 102 mg/dL (75-110); SODIUM 142.9 mmol/L (137-145)
[2019-02-14 06:20] LABS: POTASSIUM 4.3 mmol/L (3.6-5.0)
[2019-02-14] MEDS: INSULIN LISPRO 100 UNIT/ML 3 ML VIAL SUBCUT SCH (09:16)
[2019-02-14] MEDS: FAMOTIDINE 20 MG TABLET PO SCH (09:38)
[2019-02-14] MEDS: ENOXAPARIN SODIUM INJ 30 MG/0.3 ML DISP.SYRIN SUBCUT SCH (09:39)
[2019-02-14 09:47] VITALS: BP 125/61
--- NOTE | 2019-02-18 16:14 | PDOC DISCHARGE SUMMARY ---
General - Admit/Disc Date/PCP Admission Date/Primary Care Provider: 02/10/19 18:34 DALE GILLIS MD Discharge Date: 02/14/19 - Discharge Diagnosis (1) Acute kidney injury Is this a current diagnosis for this admission?: Yes (2) Chronic kidney disease Is this a current diagnosis for this admission?: Yes (3) Hyperkalemia Is this a current diagnosis for this admission?: Yes (4) PEG (percutaneous endoscopic gastrostomy) status Is this a current diagnosis for this admission?: No - Additional Information Resuscitation Status: Full Code Discharge Diet: Diabetic Discharge Activity: Activity As Tolerated Prescriptions: Sodium Polystyrene Sulfonate [Kayexalate 15 Gm/60 Ml Susp 60 Ml] 15 gm PO DAILY 7 Days #7 bottle Home Medications: Famotidine [Pepcid 20 mg Tablet] 20 mg PO BID 02/10/19 Glipizide [Glipizide Xl] 5 mg PO BID 02/10/19 Magnesium Oxide [Mag-Ox 400 mg Tablet] 400 mg PO DAILY 02/10/19 Metoprolol Tartrate [Lopressor 25 mg Tablet] 12.5 mg PO Q12 02/10/19 Rosuvastatin Calcium [Crestor] 40 mg PO QHS 02/10/19 Tamsulosin HCl [Flomax 0.4 mg Cap.sr] 0.4 mg PO QPM 02/10/19 Sodium Polystyrene Sulfonate [Kayexalate 15 Gm/60 Ml Susp 60 Ml] 15 gm PO DAILY 7 Days #7 bottle 02/14/19 History of Present Illness History of Present Illness: MEL ACUÑA is a 73 year old male with history of for coronary artery disease, hypertension, diabetes mellitus, 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 Patient is come to the emergency room for those abnormal lab results. Work-up in the ER indicates his creatinine was elevated from baseline 2.1-2.7. Repeat potassium in the ER 6.0. Medical consult was called for admission. Patient denies any na usea vomiting diarrhea fevers no change. Hospital Course Hospital Course: (1) Acute kidney injury Improved within normal limits. Due to to worsening CKD and excessive potassium intake. Patient endorsed excessive orange juice and banana intake. 02/14/2019. Sodium 142.9, potassium 4.3, bicarb 16, creatinine 1.66. 02/13/2019. Sodium 143, potassium 5.5 up from 5.1 this morning, creatinine 2.03 down from 2.26 02/12/2019. Sodium 141, potassium 5.3, down from 5.8 on admission, creatinine 2.05 down from 2.19, 02/11/2019. Potassium 5.6 down from 5.8 on admission. Creatinine 2.19 down from 2.72, baseline 2.31 Was started on Veltassa, lactulose. Can not give daily Kayexalate due to national shortage. Discharged on Kayexalate for another 7 days. Advised on renal diet. Advised to follow-up with her state federal relations deputy director Dr. Gillis as outpatient. (2) Chronic kidney disease Back to baseline. As per #1. (3) Hyperkalemia As per #1. (4) PEG (percutaneous endoscopic gastrostomy) status History of colectomy. Continue PEG tube care. Physical Exam Vital Signs: Temp Pulse Resp BP Pulse Ox 97.9 F 63 16 125/61 100 02/14/19 10:30 02/14/19 10:30 02/14/19 10:30 02/14/19 10:30 02/14/19 10:30 Results Laboratory Results: 02/13/19 03:00 02/14/19 05:02 02/10/19 02/10/19 02/11/19 19:25 19:25 00:30 Creatine Kinase 86 78 CK-MB (CK-2) 2.30 Troponin I < 0.012 NT-Pro-B Natriuret Pep 02/11/19 02/11/19 02/11/19 00:30 07:06 07:06 Creatine Kinase 83 CK-MB (CK-2) 2.05 1.98 Troponin I < 0.012 0.012 NT-Pro-B Natriuret Pep 719 Qualifiers - * PATIENT BEING DISCHARGED WITH ANY OF THE FOLLOWING DIAGNOSIS: No Acute Heart Failure Is this a Heart Failure Patient?: No
== END 2019-02-14 10:45 | disposition home or self-care (01) | DRG 684 ==
LOC: ER 14:27 → EH 18:34 → OBSVTOIN 18:34 → INTOOBSV 18:34 → 5 23:00
PROVIDERS: ADMIT Internal Medicine; ATTEND Internal Medicine
DX: N17.9 Acute kidney failure, unspecified (principal); E87.5 Hyperkalemia; E11.22 Type 2 diabetes mellitus with diabetic chronic kidney disease; Z93.1 Gastrostomy status; R00.1 Bradycardia, unspecified; N18.4 Chronic kidney disease, stage 4 (severe); I25.10 Atherosclerotic heart disease of native coronary artery without angina pectoris; I12.9 Hypertensive chronic kidney disease with stage 1 through stage 4 chronic kidney disease, or unspecified chronic kidney disease; E78.5 Hyperlipidemia, unspecified; M19.90 Unspecified osteoarthritis, unspecified site; Z79.84 Long term (current) use of oral hypoglycemic drugs; Z86.010 Personal history of colon polyps; I25.2 Old myocardial infarction; Z88.8 Allergy status to other drugs, medicaments and biological substances; Z79.82 Long term (current) use of aspirin; Z90.49 Acquired absence of other specified parts of digestive tract; Z83.3 Family history of diabetes mellitus; Z82.49 Family history of ischemic heart disease and other diseases of the circulatory system
CPT/HCPCS: 36415; 80048; 80053; 80307; 81001; 82550; 82553; 82962; 83036; 83735; 83880; 84443; 84484; 85025; 87086; 93005; 93010; 96361; 96374; 96375; 99284; J0610; J1650; J1815; J3490; J7030

== ENCOUNTER → 2019-02-10 | Outpatient (CLI) | payer MEDICARE, BC ==
[2019-02-10 13:07] LABS: ANION GAP 9 (5-19); BLOOD UREA NITROGEN 50 mg/dL (7-20); CALCIUM 9.9 mg/dL (8.4-10.2); CARBON DIOXIDE 18 mmol/L (22-30); CHLORIDE 113 mmol/L (98-107); GLUCOSE 137 mg/dL (75-110); SODIUM 139.7 mmol/L (137-145)
== END ==
LOC: OD 12:07
PROVIDERS: ATTEND Internal Medicine Nephrology
DX: N18.3 Chronic kidney disease, stage 3 (moderate) (principal); D63.1 Anemia in chronic kidney disease; E11.22 Type 2 diabetes mellitus with diabetic chronic kidney disease
CPT/HCPCS: 36415; 80048

== ENCOUNTER → 2019-06-22 | Outpatient (CLI) | payer MEDICARE, BC ==
[2019-06-22 12:52] LABS: ABSOLUTE BASOPHILS # (AUTO) 0.1 10^3/uL (0.0-0.2); ABSOLUTE EOSINOPHILS # (AUTO) 0.2 10^3/uL (0.0-0.6); ABSOLUTE LYMPHOCYTES (AUTO) 1.8 10^3/uL (0.5-4.7); ABSOLUTE MONOCYTES (AUTO) 0.6 10^3/uL (0.1-1.4); ABSOLUTE NEUT (AUTO) 4.7 10^3/uL (1.7-8.2); BASOPHILS % (AUTO) 0.8 % (0-2); EOSINOPHILS % (AUTO) 2.7 % (0-6); HEMATOCRIT 40.7 % (37.9-51.0); HEMOGLOBIN 13.7 g/dL (13.5-17.0); LYMPHOCYTES % (AUTO) 24.8 % (13-45); MEAN CORPUSCULAR HEMOGLOBIN 34.8 pg (27.0-33.4); MEAN CORPUSCULAR HGB CONC 33.7 g/dL (32.0-36.0); MEAN CORPUSCULAR VOLUME 103 fl (80-97); PLATELET COUNT 135 10^3/uL (150-450); RED BLOOD COUNT 3.94 10^6/uL (4.35-5.55); RED CELL DISTRIBUTION WIDTH 14.1 % (11.5-14.0); SEGMENTED NEUTROPHILS % (AUTO) 63.7 % (42-78); TOTAL CELLS COUNTED % (AUTO) 100 %; WHITE BLOOD COUNT 7.4 10^3/uL (4.0-10.5)
[2019-06-22 13:15] LABS: ALBUMIN 4.3 g/dL (3.5-5.0); ALKALINE PHOSPHATASE 105 U/L (38-126); ANION GAP 11 (5-19); ASPARTATE AMINO TRANSFERASE 35 U/L (17-59); BILIRUBIN,DIRECT 0.2 mg/dL (0.0-0.4); BILIRUBIN,TOTAL 0.3 mg/dL (0.2-1.3); BLOOD UREA NITROGEN 40 mg/dL (7-20); CALCIUM 10.1 mg/dL (8.4-10.2); CARBON DIOXIDE 15 mmol/L (22-30); CHLORIDE 114 mmol/L (98-107); GLUCOSE 165 mg/dL (75-110); POTASSIUM 4.9 mmol/L (3.6-5.0); TOTAL PROTEIN 7.3 g/dL (6.3-8.2)
--- NOTE | 2019-06-22 13:36 | EKG REPORT ---
SEVERITY:- ABNORMAL ECG - SINUS RHYTHM MULTIPLE ATRIAL PREMATURE COMPLEXES LAD, CONSIDER LEFT ANTERIOR FASCICULAR BLOCK NONSPECIFIC INFERIOR ST-T CHANGES : Confirmed by: Malick Aleman MD 22-Jun-2019 13:36:07
== END ==
LOC: OD 11:44
PROVIDERS: ATTEND Orthopaedic Surgery Sports Medicine
DX: G56.21 Lesion of ulnar nerve, right upper limb (principal); Z11.2 Encounter for screening for other bacterial diseases
CPT/HCPCS: 36415; 80053; 85025; 87070; 93005; 93010

== ENCOUNTER → 2019-09-14 | Outpatient (CLI) | payer MEDICARE, BC ==
[2019-09-14 11:15] LABS: ABSOLUTE BASOPHILS # (AUTO) 0.1 10^3/uL (0.0-0.2); ABSOLUTE EOSINOPHILS # (AUTO) 0.3 10^3/uL (0.0-0.6); ABSOLUTE MONOCYTES (AUTO) 0.7 10^3/uL (0.1-1.4); ABSOLUTE NEUT (AUTO) 4.1 10^3/uL (1.7-8.2); BASOPHILS % (AUTO) 0.9 % (0-2); EOSINOPHILS % (AUTO) 4.6 % (0-6); HEMATOCRIT 36.2 % (37.9-51.0); HEMOGLOBIN 12.2 g/dL (13.5-17.0); MEAN CORPUSCULAR HEMOGLOBIN 34.7 pg (27.0-33.4); MEAN CORPUSCULAR HGB CONC 33.6 g/dL (32.0-36.0); MEAN CORPUSCULAR VOLUME 103 fl (80-97); MONOCYTES % (AUTO) 9.7 % (3-13); PLATELET COUNT 122 10^3/uL (150-450); RED BLOOD COUNT 3.51 10^6/uL (4.35-5.55); SEGMENTED NEUTROPHILS % (AUTO) 56.8 % (42-78); TOTAL CELLS COUNTED % (AUTO) 100 %; WHITE BLOOD COUNT 7.2 10^3/uL (4.0-10.5)
[2019-09-14 11:35] LABS: ALBUMIN 3.9 g/dL (3.5-5.0); ANION GAP 10 (5-19); BLOOD UREA NITROGEN 31 mg/dL (7-20); CALCIUM 9.7 mg/dL (8.4-10.2); CARBON DIOXIDE 16 mmol/L (22-30); CHLORIDE 115 mmol/L (98-107); GLUCOSE 108 mg/dL (75-110); PHOSPHORUS 4.6 mg/dL (2.5-4.5); POTASSIUM 4.4 mmol/L (3.6-5.0)
[2019-09-14 11:43] LABS: APPEARANCE,URINE SLIGHTLY-CLOUDY; BILIRUBIN,URINE NEGATIVE (NEGATIVE); COLOR,URINE YELLOW; GLUCOSE, URINE NEGATIVE (NEGATIVE); KETONES,URINE NEGATIVE (NEGATIVE); LEUKOCYTE ESTERASE,URINE SMALL (NEGATIVE); NITRITE,URINE NEGATIVE (NEGATIVE); PROTEIN,URINE 30 mg/dL (NEGATIVE); URINE SPECIFIC GRAVITY 1.013; UROBILINOGEN,URINE NEGATIVE mg/dL (<2.0)
== END ==
LOC: OD 10:42
PROVIDERS: ATTEND Internal Medicine Nephrology
DX: N17.9 Acute kidney failure, unspecified (principal); E11.22 Type 2 diabetes mellitus with diabetic chronic kidney disease; N18.3 Chronic kidney disease, stage 3 (moderate); D63.1 Anemia in chronic kidney disease; N39.0 Urinary tract infection, site not specified
CPT/HCPCS: 36415; 80069; 81001; 82043; 82306; 82570; 83970; 85025; 87086; 87088

== ENCOUNTER → 2019-12-07 | Outpatient (CLI) | payer MEDICARE, BC ==
[2019-12-07 13:19] LABS: ABSOLUTE BASOPHILS # (AUTO) 0.1 10^3/uL (0.0-0.2); ABSOLUTE EOSINOPHILS # (AUTO) 0.3 10^3/uL (0.0-0.6); ABSOLUTE MONOCYTES (AUTO) 0.9 10^3/uL (0.1-1.4); ABSOLUTE NEUT (AUTO) 7.3 10^3/uL (1.7-8.2); BASOPHILS % (AUTO) 0.9 % (0-2); EOSINOPHILS % (AUTO) 2.8 % (0-6); HEMATOCRIT 37.2 % (37.9-51.0); HEMOGLOBIN 12.4 g/dL (13.5-17.0); LYMPHOCYTES % (AUTO) 19.2 % (13-45); MEAN CORPUSCULAR HEMOGLOBIN 34.7 pg (27.0-33.4); MEAN CORPUSCULAR HGB CONC 33.4 g/dL (32.0-36.0); MEAN CORPUSCULAR VOLUME 104 fl (80-97); MONOCYTES % (AUTO) 8.2 % (3-13); PLATELET COUNT 123 10^3/uL (150-450); RED BLOOD COUNT 3.58 10^6/uL (4.35-5.55); RED CELL DISTRIBUTION WIDTH 15.4 % (11.5-14.0); SEGMENTED NEUTROPHILS % (AUTO) 68.9 % (42-78); TOTAL CELLS COUNTED % (AUTO) 100 %; WHITE BLOOD COUNT 10.6 10^3/uL (4.0-10.5)
[2019-12-07 13:50] LABS: ANION GAP 9 (5-19); BLOOD UREA NITROGEN 30 mg/dL (7-20); CALCIUM 9.2 mg/dL (8.4-10.2); CARBON DIOXIDE 18 mmol/L (22-30); CHLORIDE 114 mmol/L (98-107); GLUCOSE 208 mg/dL (75-110); POTASSIUM 4.8 mmol/L (3.6-5.0)
== END ==
LOC: OD 12:30
PROVIDERS: ATTEND Internal Medicine Nephrology
DX: E11.22 Type 2 diabetes mellitus with diabetic chronic kidney disease (principal); N18.4 Chronic kidney disease, stage 4 (severe); E87.2 Acidosis; D63.1 Anemia in chronic kidney disease
CPT/HCPCS: 36415; 80048; 82043; 82570; 85025